=== PATIENT | male | born 1970 | race Caucasian/White ===

== ENCOUNTER 2017-10-21 18:11 | Emergency (ER) | payer OTHER ==
[2017-10-21 18:41] VITALS: BMI 29.0
--- NOTE | 2017-10-21 18:41 | PDOC ---
Rapid Medical Evaluation Time Seen by Provider: 10/21/17 18:37 Medical Evaluation: Allergies Allergy/AdvReac Type Severity Reaction Status Date / Time No Known Allergies Allergy Verified 06/16/15 10:06 10/21/17 18:37 Pt states he has vomiting since yesterday. States he has H. Pylori, currently on medication. States he has a burning feeling in his stomach. Currently taking nexium. Vomited multiple times today Exam: TTP LUQ. Abdomen protuberent. Belching Orders: Labs, urine, iv Pt to proceed to ED for further evaluation Discharge Disposition - Diagnosis Vomiting - Referrals - Patient Instructions - Post Discharge Activity
--- NOTE | 2017-10-21 19:10 | PDOC ---
History of Present Illness - General Chief Complaint: Pain, Acute Stated Complaint: VOMITING/DIARRHEA Time Seen by Provider: 10/21/17 18:37 - History of Present Illness Initial Comments: 10/21/17 20:09 The patient is a 47 year old male with a history of DM, H.Pylori, who presents for evaluation of epigastric abdominal pain. The patient reprots a 1 day history of burning epigastric abdominal pain with radiation into his chest associated with multiple episodes of non-bilious, non-bloody vomiting prompting his presentation to the ED for further evaluation. He notes that he has had similar symptoms in the past due to gastritis. He otherwise denies fevers, chills, SOB, or changes with urination. He does note some intermittent constipation and diarrhea as well. Past History - Past Medical History Allergies/Adverse Reactions: Allergies Allergy/AdvReac Type Severity Reaction Status Date / Time metronidazole Allergy Verified 10/21/17 18:38 Home Medications: Ambulatory Orders metFORMIN HCL [Glucophage -] 1,000 mg PO DAILY 09/19/13 Aspirin [Aspirin EC] 81 mg PO DAILY 12/25/13 Insulin Glargine,Hum.rec.anlog [Lantus (10mL VIAL) -] 15 units SQ DAILY Rosuvastatin Calcium [Crestor] 0 mg PO DAILY 12/25/13 Ondansetron [Zofran Odt -] 4 mg SL TID #21 od.tablet 10/21/17 Pantoprazole Sodium [Protonix -] 40 mg PO DAILY #30 tablet.ec 10/21/17 COPD: No DVT: No Diabetes: Yes - Immunization History Immunization Up to Date: Yes - Suicide/Smoking/Psychosocial Hx Smoking History: Never smoked Have you smoked in the past 12 months: No Number of Cigarettes Smoked Daily: 0 Hx Alcohol Use: No Drug/Substance Use Hx: No Substance Use Type: None Review of Systems - Review of Systems Comments:: 10/21/17 20:11 Constitutional: No fevers, chills, fatigue, malaise HEENT: No Rhinorrhea, nasal congestion, visual changes Cardiovascular: No chest pain, syncope, palpitations, lightheadedness Respiratory: No Cough, SOB, Hemoptysis, Gastrointestinal: Abdominal pain, nausea, vomiting, diarrhea, constipation. No Melena Genitourinary: No Dysuria, Frequency, Urgency, Hesitancy, Hematuria, Flank pain Musculoskeletal: No Myalgia, arthralgia Skin: No rashes, itching, bruising, pallor Neurologic: No Headache, Dizziness, Numbness, Weakness, or Tingling Psychiatric: No Hallucinations. No SI or HI *Physical Exam - Vital Signs Last Vital Signs Temp Pulse Resp BP Pulse Ox 98.8 F 104 H 19 115/78 99 10/21/17 18:38 10/21/17 18:38 10/21/17 18:38 10/21/17 18:38 10/21/17 18:38 - Physical Exam Comments: 10/21/17 20:12 General Appearance: Nourished. In Mild Apparent Distress HEENT: EOMI, SD. No Pharyngeal Erythema, Tonsillar Exudate, Tonsillar Erythema Neck: No Cervical Lymphadenopathy Respiratory/Chest: Lungs Clear, Normal Breath Sounds. No Crackles, Rales, Rhonchi, Wheezing Cardiovascular: Regular Rhythm, Regular Rate. No Murmur, Gallops, Rubs Gastrointestinal/Abdominal: Normal Bowel Sounds, Soft. No Guarding, Rebound, Tenderness Musculoskeletal: No CVA Tenderness Extremity: Normal Capillary Refill Integumentary: Normal Color, Dry, Warm Neurologic: Fully Oriented, Alert, Normal Mood/Affect, Normal Response, M ED Treatment Course - LABORATORY CBC & Chemistry Diagram: 10/21/17 19:25 10/21/17 19:25 Medical Decision Making - Medical Decision Making 10/21/17 20:16 The patient is a 47 year old male with a history of DM, H.Pylori, who presents for evaluation of epigastric abdominal pain. Differential includes but is not limited to: Gastritis, GERD, Cholecystitis, Infectious, Metabolic Derangement. Given the patient's history and physical exam, it is likely the patient's symptoms are due to a gastritis. However, we will obtain a cbc, cmp, troponin, ua, abdominal plain film to evaluate further. We will treat in the meantime with iv fluids, pepcid, zofran, maalox and viscous lidocaine. We will continue to monitor and reassess while here in the ED. 10/21/17 21:36 CBc, cmp, troponin, ua, abdominal plain film are unremarkable. The patient reports some improvement in his symptoms. We are comfortable discharging the patient home with primary care provider follow up on protonix and zofran. We discussed the results, plan, and return precautions with the patient who voiced understanding and is agreeable with the plan. *DC/Admit/Observation/Transfer Diagnosis at time of Disposition: Vomiting Qualifiers: Vomiting type: unspecified Vomiting Intractability: unspecified Nausea presence : with nausea Qualified Code(s): R11.2 - Nausea with vomiting, unspecified - Discharge Dispostion Disposition: HOME Condition at time of disposition: Stable Decision to Admit order: No - Prescriptions Prescriptions: Ondansetron [Zofran Odt -] 4 mg SL TID #21 od.tablet Pantoprazole Sodium [Protonix -] 40 mg PO DAILY #30 tablet.ec - Referrals - Patient Instructions Printed Discharge Instructions: DI for Abdominal Pain-Adult Additional Instructions: Please return to the ER if you experience concerning or worsening symptoms including worsening abdominal pain, fevers, or vomiting. Your lab results and x-rays were normal here in the ED. We have sent a prescription for medications to your pharmacy that you should take as directed. Please call to schedule a follow up appointment with your primary care provider within 2-3 days to discuss your ER visit and further management of your symptoms. - Post Discharge Activity
[2017-10-21] MEDS ORDERED: ONDANSETRON 4 MG/2 ML VIAL IVPUSH ONE ×2 (19:19→22:19)
[2017-10-21] MEDS ORDERED: SODIUM CHLORIDE 1,000 ML IV STA (19:19)
[2017-10-21] MEDS ORDERED: LIDOCAINE VISCOUS 2% ORAL/TOP 20 ML UNIT-DOSE CUP MM ONE (19:20)
[2017-10-21] MEDS ORDERED: MAG HYDROX/AL HYDROX/SIMETH 30 ML UNIT-DOSE CUP PO ONE ×2 (19:20→21:51)
--- NOTE | 2017-10-21 19:27 | PDOC ---
Attending Attestation - [facility] HPI: 10/21/17 19:54 The patient is a 47 year old male, with a significant past medical history of H. pylori (on medication), hypertension, high cholesterol and insulin-dependent diabetes, who presents to the emergency department with, 1 day of diffuse abdominal pain, nausea, vomiting, and diarrhea. He describes his abdominal pain as a burning radiating up to the chest. He denies any recent fevers, chills, headache or dizziness. He denies any recent constipation. He denies any recent shortness of breath. He denies any recent dysuria, frequency, urgency or hematuria. Allergies: Metronidazole. Social History: Nonsmoker. Denies EtOH use and recreational drug use. - Physicial Exam PE: 10/21/17 21:36 GENERAL: Well developed, well nourished. Awake and alert. No acute distress. HEENT: Normocephalic, atraumatic. PERRLA, EOMI. No conjunctival pallor. Sclera are non- icteric. Moist mucous membranes. Oropharynx is clear. NECK: Supple. Full ROM. No JVD. Carotid pulses 2+ and symmetric, without bruits. No thyromegaly. No lymphadenopathy. CARDIOVASCULAR: Regular rate and rhythm. No murmurs, rubs, or gallops. Distal pulses are 2+ and symmetric. PULMONARY: No evidence of respiratory distress. Lungs clear to auscultation bilaterally. No wheezing, rales or rhonchi. ABDOMINAL: Soft. Non-tender. Non-distended. No rebound or guarding. No organomegaly. Normoactive bowel sounds. MUSCULOSKELETAL Normal range of motion at all joints. No bony deformities or tenderness. No CVA tenderness. EXTREMITIES: No cyanosis. No clubbing. No edema. No calf tenderness. SKIN: Warm and dry. Normal capillary refill. No rashes. No jaundice. NEUROLOGICAL: Alert, awake, appropriate. Cranial nerves 2-12 intact. No deficits to light touch and temperature in face, upper extremities and lower extremities. No motor deficits in the in face, upper extremities and lower extremities. Normoreflexic in the upper and lower extremities. Normal speech. Toes are down- going bilaterally. Gait is normal without ataxia. PSYCHIATRIC: Cooperative. Good eye contact. Appropriate mood and affect. <Odell Chatman - Last Filed: 10/21/17 21:36> - Resident Resident Name: GreciaMontrell - ED Attending Attestation I have performed the following: I have examined & evaluated the patient, The case was reviewed & discussed with the resident, I agree w/resident's findings & plan, Exceptions are as noted - Medical Decision Making 10/21/17 21:39 47-year-old male who presented with nausea, vomiting, diarrhea 1 day Past medical history type 2 diabetes he received Zofran, IV fluids, PPI and symptoms improved. Last reviewed - patient is NIDDM and his glucose is about 250, but he is not acidotic and his electrolytes are within normal limits Impression acute gastroenteritis 10/21/17 21:40 <Thais Lundy - Last Filed: 10/21/17 21:42> Attestations - Attestations 10/21/17 19:54 Documentation prepared by Odell Chatman, acting as medical chemist for Thais Lundy MD. <Odell Chatman - Last Filed: 10/21/17 21:36>
[2017-10-21] MEDS ORDERED: FAMOTIDINE 20 MG/50 ML IVPB 20 MG/50 ML MG IVPB ONE ×2 (19:30→19:40)
[2017-10-21] MEDS ORDERED: LIDOCAINE VISCOUS 2% ORAL/TOP 20 ML UNIT-DOSE CUP ONE (19:39)
[2017-10-21] MEDS ORDERED: MAG HYDROX/AL HYDROX/SIMETH 30 ML UNIT-DOSE CUP ONE ×2 (19:40→21:54)
[2017-10-21] MEDS ORDERED: ONDANSETRON 4 MG/2 ML VIAL ONE ×2 (19:40→22:22)
[2017-10-21 19:51] LABS: BASO % 0.3 % (0-2.0); EOS % 0.1 % (0-4.5); HEMATOCRIT 47.2 % (35.4-49); HEMOGLOBIN 16.5 GM/dL (11.7-16.9); LYMPH % 18.3 % (8-40); MCHC 34.8 g/dl (32.0-35.9); MEAN CELL VOLUME 86.2 fl (80-96); MEAN PLT VOLUME 8.6 fl (7.5-11.1); MONO % 4.6 % (3.8-10.2); NEUT % 76.7 % (42.8-82.8); PLATELET COUNT 296 K/MM3 (134-434); RBC 5.48 M/mm3 (4.00-5.60); RDW 13.4 % (11.9-15.9); WHITE BLOOD COUNT 7.3 K/mm3 (4.0-10.0)
[2017-10-21 20:15] LABS: ALBUMIN 4.3 g/dl (3.4-5.0); ANION GAP 12 (8-16); BLOOD UREA NITROGEN 11 mg/dL (7-18); CALCIUM 9.1 mg/dL (8.5-10.1); CHLORIDE 99 mmol/L (98-107); CO2 26 mmol/L (21-32); GLUCOSE,RANDOM 258 mg/dL (74-106); POTASSIUM 3.9 mmol/L (3.5-5.1); SGOT/AST 9 U/L (15-37); SGPT/ALT 23 U/L (12-78); SODIUM 137 mmol/L (136-145)
[2017-10-21 20:17] LABS: ALK PHOS 82 U/L (45-117); BILIRUBIN,TOTAL 0.9 mg/dL (0.2-1.0); TOT PROT 7.6 g/dl (6.4-8.2)
[2017-10-21 20:30] LABS: PROTHROMBIN TIME (PATIENT) 11.3 SEC (9.7-13.0)
[2017-10-21] MEDS ORDERED: PANTOPRAZOLE SODIUM 40 MG VIAL IVPUSH ONE (21:51)
[2017-10-21 21:53] LABS: PLATELET ESTIMATE ADEQUATE
[2017-10-21] MEDS ORDERED: PANTOPRAZOLE SODIUM 40 MG VIAL ONE (21:54)
[2017-10-21 22:43] LABS: URINE APPEARANCE CLEAR; URINE BILIRUBIN NEGATIVE (<2.0 mg/dL); URINE COLOR LTYELLOW; URINE GLUCOSE (UA) 3+ (NEGATIVE); URINE KETONE 2+ (NEGATIVE); URINE LEUK ESTERASE NEGATIVE (NEGATIVE); URINE NITRITE NEGATIVE (NEGATIVE); URINE PROTEIN NEGATIVE (NEGATIVE); URINE UROBILINOGEN NEGATIVE mg/dL (0.2-1.0)
[2017-10-21 22:44] VITALS: BP 155/95; PULSE 99; TEMP 99.8
== END 2017-10-22 00:48 | disposition home or self-care (01) ==
LOC: JER 18:11
PROC: 3E033GC Introduction of Other Therapeutic Substance into Peripheral Vein, Percutaneous Approach (ICD-10-PCS; principal; 2017-10-21)
DX: K52.9 Noninfective gastroenteritis and colitis, unspecified (principal); I10 Essential (primary) hypertension; E78.00 Pure hypercholesterolemia, unspecified; E11.9 Type 2 diabetes mellitus without complications; Z79.4 Long term (current) use of insulin; Z79.84 Long term (current) use of oral hypoglycemic drugs; R11.2 Nausea with vomiting, unspecified; Z86.19 Personal history of other infectious and parasitic diseases
CPT/HCPCS: 36415; 74018-TC-FY; 80053; 81003; 82550; 83690; 84484; 85025; 85610; 87086; 96365; 96375; 99282-25; J7030

== ENCOUNTER 2018-10-17 12:04 | Emergency (ER) | payer OTHER ==
[2018-10-17 12:20] VITALS: TEMP 97.9; BMI 25.4
[2018-10-17] MEDS ORDERED: morphine CARPU-JECT 4 MG/1 ML DISP.SYRIN IVPUSH ONE ×3 (12:47→15:38)
[2018-10-17] MEDS ORDERED: ONDANSETRON 4 MG/2 ML VIAL IVPUSH ONE ×3 (12:47→15:38)
[2018-10-17] MEDS ORDERED: FAMOTIDINE 20 MG/50 ML IVPB 20 MG/50 ML MG IVPB ONE ×2 (12:48→12:54)
[2018-10-17] MEDS ORDERED: SODIUM CHLORIDE 1,000 ML IV STA ×2 (12:50→13:58)
--- NOTE | 2018-10-17 12:54 | PDOC ---
History of Present Illness - General History Source: Patient, Bag Loader Used (Malawian) Exam Limitations: Language Barrier (Malawian) - History of Present Illness Initial Comments: 48 yo M PMH NIDDM, H pylori 1 year ago, p/w diffuse burning abdominal pain for 3 days. Had nausea and vomiting that started at the same time, has had around 8- 10 episodes of vomiting a day. Says it feels similar to his pain from a year ago , when he was diagnosed with H pylori. Has tried Zofran ODT with some temporary relief. Specifically denies CP, wheezing, MARTÍNEZ, dizziness, diarrhea, constipation. Endorses dark stools, abdominal pain with defecation, N/V, abdominal pain. 10/17/18 12:46 <Brandyn Le - Last Filed: 10/17/18 17:49> <Vilma Kumar - Last Filed: 10/17/18 20:17> - General Chief Complaint: Pain, Acute Stated Complaint: ABDOMINAL PAIN Time Seen by Provider: 10/17/18 12:21 Past History - Past Medical History COPD: No DVT: No Diabetes: Yes GI Disorders: Yes (h pylori) - Immunization History Immunization Up to Date: Yes - Suicide/Smoking/Psychosocial Hx Smoking History: Never smoked Have you smoked in the past 12 months: No Number of Cigarettes Smoked Daily: 0 Information on smoking cessation initiated: No Hx Alcohol Use: No Drug/Substance Use Hx: No Substance Use Type: None <Brandyn Le - Last Filed: 10/17/18 17:49> <Vilma Kumar - Last Filed: 10/17/18 20:17> - Past Medical History Allergies/Adverse Reactions: Allergies Allergy/AdvReac Type Severity Reaction Status Date / Time metronidazole Allergy Verified 10/17/18 12:12 Home Medications: Ambulatory Orders metFORMIN HCL [Glucophage -] 1,000 mg PO DAILY 09/19/13 Aspirin [Aspirin EC] 81 mg PO DAILY 12/25/13 Insulin Glargine,Hum.rec.anlog [Lantus (10mL VIAL) -] 15 units SQ DAILY Rosuvastatin Calcium [Crestor] 0 mg PO DAILY 12/25/13 Ondansetron [Zofran Odt -] 4 mg SL TID #21 od.tablet 10/21/17 Pantoprazole Sodium [Protonix -] 40 mg PO DAILY #30 tablet.ec 10/21/17 Metoclopramide HCl [Reglan] 10 mg PO DAILY PRN #14 tablet 10/17/18 Ranitidine [Zantac -] 150 mg PO DAILY PRN #30 tablet 10/17/18 Review of Systems - Review of Systems Able to Perform ROS?: Yes Constitutional: No: Chills, Fever, Weakness HEENTM: No: Blurred Vision, Double Vision, Throat Pain, Throat Swelling, Difficulty Swallowing Respiratory: No: Cough, Orthopnea, Shortness of Breath Cardiac (ROS): No: Chest Pain, Edema, Irregular Heart Rate, Lightheadedness ABD/GI: Yes: Abd. Pain w/ defecation, Nausea, Vomiting, Tarry Stools. No: Abdominal Distended, Constipated, Diarrhea : No: Burning, Dysuria, Discharge, Frequency, Flank Pain Musculoskeletal: No: Back Pain, Muscle Pain, Muscle Weakness Neurological: No: Headache, Numbness, Tingling <Brandyn Le - Last Filed: 10/17/18 17:49> *Physical Exam - Vital Signs Last Vital Signs Temp Pulse Resp BP Pulse Ox 97.9 F 94 H 20 136/85 99 10/17/18 12:12 10/17/18 12:12 10/17/18 12:12 10/17/18 12:12 10/17/18 12:12 - Physical Exam General Appearance: Yes: Appropriately Dressed, Moderate Distress HEENT: positive: EOMI, SD, Normal ENT Inspection, Normal Voice, Pharynx Normal , Hearing Grossly Normal Neck: positive: Trachea midline, Normal Thyroid, Supple Respiratory/Chest: positive: Lungs Clear, Normal Breath Sounds. negative: Chest Tender, Respiratory Distress, Accessory Muscle Use Cardiovascular: positive: Regular Rhythm, Regular Rate Gastrointestinal/Abdominal: positive: Normal Bowel Sounds, Tender (LLQ), Soft Musculoskeletal: positive: Normal Inspection. negative: CVA Tenderness Extremity: positive: Normal Capillary Refill, Normal Inspection, Normal Range of Motion Integumentary: positive: Normal Color, Dry, Warm Neurologic: positive: child care cook II-XII NML intact, Fully Oriented, Alert, Normal Mood/ Affect, Normal Response, Motor Strength 5/5 <Brandyn Le - Last Filed: 10/17/18 17:49> - Vital Signs Last Vital Signs Temp Pulse Resp BP Pulse Ox 97.9 F 88 18 146/86 98 10/17/18 12:12 10/17/18 17:32 10/17/18 17:32 10/17/18 17:32 10/17/18 17:32 <Sabi Kumarreen - Last Filed: 10/17/18 20:17> ED Treatment Course - LABORATORY CBC & Chemistry Diagram: 10/17/18 13:00 10/17/18 13:00 <Brandyn Le - Last Filed: 10/17/18 17:49> - LABORATORY CBC & Chemistry Diagram: 10/17/18 13:00 10/17/18 13:00 - ADDITIONAL ORDERS Additional order review: Laboratory Results 10/17/18 10/17/18 10/17/18 13:11 13:11 13:00 Sodium Potassium Chloride Carbon Dioxide Anion Gap BUN Creatinine Est GFR (CKD-EPI)AfAm Est GFR (CKD-EPI)NonAf Random Glucose Calcium Total Bilirubin AST ALT Alkaline Phosphatase Total Protein Albumin Lipase Urine Color Yellow Urine Appearance Clear Urine pH >= 9.0 H D Ur Specific [place] 1.036 H Urine Protein Negative Urine Glucose (UA) 2+ H Urine Ketones 3+ H Urine Blood Negative Urine Nitrite Negative Urine Bilirubin Negative Urine Urobilinogen 1.0 Ur Leukocyte Esterase Negative Stool Occult Blood Negative Acetone, Qual Positive small 1+ 10/17/18 13:00 Sodium 137 Potassium 4.3 Chloride 100 Carbon Dioxide 27 Anion Gap 11 BUN 12.8 Creatinine 0.9 Est GFR (CKD-EPI)AfAm 115.02 Est GFR (CKD-EPI)NonAf 99.24 Random Glucose 290 H Calcium 9.2 Total Bilirubin 0.7 AST 10 L ALT 25 Alkaline Phosphatase 74 Total Protein 7.3 Albumin 4.1 Lipase 165 Urine Color Urine Appearance Urine pH Ur Specific [place] Urine Protein Urine Glucose (UA) Urine Ketones Urine Blood Urine Nitrite Urine Bilirubin Urine Urobilinogen Ur Leukocyte Esterase Stool Occult Blood Acetone, Qual 10/17/18 13:00 RBC 5.10 MCV 86.8 MCHC 35.3 RDW 13.2 MPV 8.9 Neutrophils % 78.0 Lymphocytes % 18.0 Monocytes % 3.1 L Eosinophils % 0.3 D Basophils % 0.6 - Medications Given in the ED: ED Medications Discontinued Medications Generic Name Dose Route Start Last Admin Trade Name Freq PRN Reason Stop Dose Admin Al Hydroxide/Mg Hydroxide 30 ml 10/17/18 15:38 10/17/18 16:30 Mylanta Oral Suspension - PO 10/17/18 15:39 30 ml ONCE ONE Administration Famotidine/Sodium Chloride 20 mg in 50 mls @ 100 mls/hr 10/17/18 12:48 13:03 Pepcid 20 Mg Premixed Ivpb - IVPB 10/17/18 13:17 100 mls/hr ONCE ONE Administration Sodium Chloride 1,000 mls @ 1,000 mls/hr 10/17/18 12:50 10/17/18 12:51 Normal Saline - IV 10/17/18 13:49 1,000 mls/hr ASDIR STA Administration Sodium Chloride 1,000 mls @ 1,000 mls/hr 10/17/18 13:58 10/17/18 14:05 Normal Saline - IV 10/17/18 14:57 1,000 mls/hr ASDIR STA Administration Metoclopramide HCl 10 mg 10/17/18 16:03 10/17/18 16:40 Reglan Injection - IVPB 10/17/18 16:04 Not Given ONCE ONE Morphine Sulfate 4 mg 10/17/18 12:47 10/17/18 13:02 Morphine Injection - IVPUSH 10/17/18 12:48 4 mg ONCE ONE Administration Morphine Sulfate 4 mg 10/17/18 13:21 10/17/18 13:31 Morphine Injection - IVPUSH 10/17/18 13:22 4 mg ONCE ONE Administration Morphine Sulfate 4 mg 10/17/18 15:38 10/17/18 16:25 Morphine Injection - IVPUSH 10/17/18 15:39 4 mg ONCE ONE Administration Ondansetron HCl 4 mg 10/17/18 12:47 10/17/18 13:07 Zofran Injection IVPUSH 10/17/18 12:48 4 mg NOW ONE Administration Ondansetron HCl 4 mg 10/17/18 13:21 10/17/18 13:31 Zofran Injection IVPUSH 10/17/18 13:22 4 mg NOW ONE Administration Ondansetron HCl 4 mg 10/17/18 15:38 10/17/18 16:15 Zofran Injection IVPUSH 10/17/18 15:39 4 mg ONCE ONE Administration <Kumar,Vilma - Last Filed: 10/17/18 20:17> Medical Decision Making - Medical Decision Making Concern for PUD vs diverticulitis vs pancreatitis. CBC CMP lipase stool occult IV fluids morphine 4mg Zofran UA. Plan for CT w/ IV contrast after confirming Cr. 10/17/18 12:51 Nausea and abd pain only slightly improved. Another 4 of morphine, 4 of Zofran 10/17/18 13:22 WBC 7. UA ketones 3+ glucose 2+ 10/17/18 13:30 Abd pain and nausea better. 10/17/18 13:47 Electrolytes wnl, Cr 0.9, Glu 290 10/17/18 13:55 Lipase wnl, heme occult negative. 10/17/18 14:12 CT reviewed. No acute pathology noted. Nonspecific 1.4 cm hypodense L hepatic lobe lesion. Probable diffuse hepatic steatosis. Pleural ossification in R lower chest posteriorly. 10/17/18 15:30 Giving another 4 of morphine and 4 of Zofran, also Maalox. Getting RUQ US for possible biliary colic. 10/17/18 15:39 <Brandyn Le - Last Filed: 10/17/18 17:49> *DC/Admit/Observation/Transfer - Discharge Dispostion Decision to Admit order: No <Brandyn Le - Last Filed: 10/17/18 17:49> <Vilma Kumar - Last Filed: 10/17/18 20:17> Diagnosis at time of Disposition: Epigastric pain, Gastroparesis diabeticorum - Discharge Dispostion Disposition: HOME Condition at time of disposition: Improved - Prescriptions Prescriptions: Metoclopramide HCl [Reglan] 10 mg PO DAILY PRN #14 tablet PRN Reason: Pain Ranitidine [Zantac -] 150 mg PO DAILY PRN #30 tablet PRN Reason: Nausea - Referrals Referrals: Heber Sharma MD [Primary Care Provider] - Napoleon Che MD [Staff Physician] - - Patient Instructions Printed Discharge Instructions: DI for Gastroesophageal Reflux Disease (GERD), DI for Gastroparesis Additional Instructions: You were seen for diffuse abdominal pain. You had a CT scan of your abdomen and pelvis, which did not show any acute issues. However, it did show a 1.4 cm lesion in your liver, which should be followed up by your primary care doctor. It also showed a lung calcification, which should also be followed. Please take your Reglan and ranitidine as needed for pain and nausea. Return to the ED for worsening abdominal pain and vomiting that does not respond to your medications. Print Language: GE[place]GI[place] - Post Discharge Activity
[2018-10-17] MEDS ORDERED: morphine SULFATE 4 MG/ML VIAL ONE ×3 (12:56→16:08)
[2018-10-17] MEDS ORDERED: ONDANSETRON 4 MG/2 ML VIAL ONE ×3 (13:04→16:08)
--- NOTE | 2018-10-17 13:17 | PDOC ---
Documentation entered by Nancy Torres SCRIBE, acting as scribe for Rubio Rocha MD. Rubio Rocha MD: This documentation has been prepared by the Melissa ramirez Xhesika, SCRIBE, under my direction and personally reviewed by me in its entirety. I confirm that the documentation accurately reflects all work, treatment, procedures, and medical decision making performed by me. Attending Attestation - Resident Resident Name: LeSangmel - ED Attending Attestation I have performed the following: I have examined & evaluated the patient, The case was reviewed & discussed with the resident, I agree w/resident's findings & plan, Exceptions are as noted - HPI HPI: 10/17/18 12:50 The patient is a 48 year old male, with a significant past medical history of H. pylori (1 year ago), hypertension, high cholesterol and uncontrolled DM, who presents to the emergency department with 3 days of abdominal pain, nausea, 8- 10 episodes of nbnb vomiting, and diarrhea. He describes his abdominal pain as a diffuse burning pain associated with SOB. Patient notes his last normal BM was 2 days ago. Patient notes he saw GI last year for H.pylori but does not remember the name. He denies any recent fevers, chills, headache or dizziness. He denies any recent constipation. He denies any recent chest pain or palpitations. He denies any recent dysuria, frequency, urgency or hematuria. Allergies: Metronidazole Social history: Denies alcohol or tobacco use. PCP: Heber Mitchell - Physicial Exam PE: 10/17/18 13:25 GENERAL: Awake, alert, and fully oriented, in no acute distress HEAD: No signs of trauma EYES: PERRLA, EOMI, sclera anicteric, conjunctiva clear ENT: Auricles normal inspection, hearing grossly normal, nares patent. (+) Dry mucosa NECK: Normal ROM, supple, no lymphadenopathy, JVD, or masses LUNGS: Breath sounds equal, clear to auscultation bilaterally. No wheezes, and no crackles HEART: Regular rate and rhythm, normal S1 and S2, no murmurs, rubs or gallops ABDOMEN:(+) LLQ tenderness to palpation. Soft, nontender. EXTREMITIES: Normal range of motion, no edema. No clubbing or cyanosis. No cords, erythema, or tenderness NEUROLOGICAL: Cranial nerves II through XII grossly intact. Normal speech, normal gait SKIN: Warm, Dry, normal turgor, no rashes or lesions noted. - Medical Decision Making 10/17/18 13:20 A portion of this note was written by my scribe, under my supervision. Vital Signs Temp Pulse Resp BP Pulse Ox 97.9 F 94 H 20 136/85 99 10/17/18 12:12 10/17/18 12:12 10/17/18 12:12 10/17/18 12:12 10/17/18 12:12 48 year old male c/ hx of H.pylori, DM presents with nausea and vomiting and abdominal pain. The patient reported in the last 3 days, he was having increasing left upper and left lower abdominal discomfort. Was initially intermittent but became increasingly persistent with worsening intensity. Pt has associated nausea and multiple vomiting. Denies testicular pain, dysuria. Denies diarrhea. Pt states that this feels like his H.Pylori attacks before. No fevers, but thinks may have had chills. Denies blood in stools. The patient has LUQ and LLQ pain. Differential includes diverticulitis, gastritis, pancreatitis, gastroparesis. I agree with the plan to obtain labs, UA/UC and CT abdomen and pelvis. Pt does report having a distant history where he had right sided pneumonia where he ended up received a "procedure" to repair it. The patient denies chest pain or SOB or cough. Denies midsternal chest pain. Will trial pain medications, IVF, and anti-emetics and reassess. 10/17/18 13:58 CBC, BMP 10/17/18 13:00 10/17/18 13:00 CMP Sodium 137 mmol/L (136-145) 10/17/18 13:00 Potassium 4.3 mmol/L (3.5-5.1) 10/17/18 13:00 Chloride 100 mmol/L (98-107) 10/17/18 13:00 Carbon Dioxide 27 mmol/L (21-32) 10/17/18 13:00 Anion Gap 11 MMOL/L (8-16) 10/17/18 13:00 BUN 12.8 mg/dL (7-18) 10/17/18 13:00 Creatinine 0.9 mg/dL (0.55-1.3) 10/17/18 13:00 Est GFR (CKD-EPI)AfAm 115.02 10/17/18 13:00 Est GFR (CKD-EPI)NonAf 99.24 10/17/18 13:00 Random Glucose 290 mg/dL (74-106) H 10/17/18 13:00 Calcium 9.2 mg/dL (8.5-10.1) 10/17/18 13:00 Total Bilirubin 0.7 mg/dL (0.2-1) 10/17/18 13:00 AST 10 U/L (15-37) L 10/17/18 13:00 ALT 25 U/L (13-61) 10/17/18 13:00 Alkaline Phosphatase 74 U/L (45-117) 10/17/18 13:00 Total Protein 7.3 g/dl (6.4-8.2) 10/17/18 13:00 Albumin 4.1 g/dl (3.4-5.0) 10/17/18 13:00 Lipase 165 U/L (73-393) 10/17/18 13:00 Urine Test Results Urine Color Yellow 10/17/18 13:11 Urine Appearance Clear 10/17/18 13:11 Urine pH >= 9.0 (5.0-8.0) H D 10/17/18 13:11 Ur Specific [place] 1.036 (1.010-1.035) H 10/17/18 13:11 Urine Protein Negative (NEGATIVE) 10/17/18 13:11 Urine Glucose (UA) 2+ (NEGATIVE) H 10/17/18 13:11 Urine Ketones 3+ (NEGATIVE) H 10/17/18 13:11 Urine Blood Negative (NEGATIVE) 10/17/18 13:11 Urine Nitrite Negative (NEGATIVE) 10/17/18 13:11 Urine Bilirubin Negative (NEGATIVE) 10/17/18 13:11 Ur Leukocyte Esterase Negative (NEGATIVE) 10/17/18 13:11 CT is pending at this time. Acetone is 1+ positive but no elevated anion gap. Unlikely to be diabetic ketoacidosis. However, pt will need NS IVF and D5NS maintenance. 10/17/18 15:38 CT scan shows hypodense lesion in RUQ but no other acute findings. Pt continues to have persistent abdominal pain. Will give more pain medications and pursue with RUQ ultrasound. 10/17/18 18:45 RUQ read pending. Pt reassessed and feels significantly better. This may be gastritis vs. gastroenteritis. If U/s is negative and pt is tolerating PO, he can be discharged home with supportive care. Heart Score/ECG Review #1 ECG reviewed & interpreted by me at: 13:15 10/17/18 13:37 NSR 93, no std/mary, normal axis, normal intervals, QTC 465 msec
[2018-10-17 13:18] LABS: BASO % 0.6 % (0-2.0); EOS % 0.3 % (0-4.5); HEMATOCRIT 44.3 % (35.4-49); HEMOGLOBIN 15.6 GM/dL (11.7-16.9); MCH 30.7 pg (25.7-33.7); MCHC 35.3 g/dl (32.0-35.9); MEAN CELL VOLUME 86.8 fl (80-96); MEAN PLT VOLUME 8.9 fl (7.5-11.1); MONO % 3.1 % (3.8-10.2); PLATELET COUNT 244 K/MM3 (134-434); RDW 13.2 % (11.9-15.9)
[2018-10-17 13:23] LABS: PH,URINE >= 9.0 (5.0-8.0); URINE APPEARANCE CLEAR; URINE BILIRUBIN NEGATIVE (NEGATIVE); URINE COLOR YELLOW; URINE GLUCOSE (UA) 2+ (NEGATIVE); URINE KETONE 3+ (NEGATIVE); URINE LEUK ESTERASE NEGATIVE (NEGATIVE); URINE NITRITE NEGATIVE (NEGATIVE); URINE PROTEIN NEGATIVE (NEGATIVE)
[2018-10-17 13:49] LABS: ALBUMIN 4.1 g/dl (3.4-5.0); BILIRUBIN,TOTAL 0.7 mg/dL (0.2-1); BLOOD UREA NITROGEN 12.8 mg/dL (7-18); CALCIUM 9.2 mg/dL (8.5-10.1); CREATININE 0.9 mg/dL (0.55-1.3); POTASSIUM 4.3 mmol/L (3.5-5.1); TOT PROT 7.3 g/dl (6.4-8.2)
[2018-10-17] MEDS ORDERED: DEXTROSE 5%-NORMAL SALINE 1,000 ML IV SCH (14:00)
[2018-10-17] MEDS ORDERED: MAG HYDROX/AL HYDROX/SIMETH 30 ML UNIT-DOSE CUP PO ONE (15:38)
[2018-10-17] MEDS ORDERED: METOCLOPRAMIDE HCL INJECTION 10 MG/2 ML VIAL IVPB ONE (16:03)
[2018-10-17] MEDS ORDERED: MAG HYDROX/AL HYDROX/SIMETH 30 ML UNIT-DOSE CUP ONE (16:08)
[2018-10-17 20:28] VITALS: BP 120/78; PULSE 100
--- NOTE | 2018-10-18 10:35 | EKG ---
Test Reason : Blood Pressure : / mmHG Vent. Rate : 093 BPM Atrial Rate : 093 BPM P-R Int : 148 ms QRS Dur : 094 ms QT Int : 374 ms P-R-T Axes : 054 019 024 degrees QTc Int : 465 ms NORMAL SINUS RHYTHM NORMAL ECG WHEN COMPARED WITH ECG OF 16-JUN-2015 10:33, NO SIGNIFICANT CHANGE WAS FOUND Confirmed by ABDI ACEVEDO MD ([id number]) on 10/18/2018 10:34:49 AM Referred By: Confirmed By:ABDI ACEVEDO MD
== END 2018-10-17 20:28 | disposition home or self-care (01) ==
LOC: JER 12:04
PROC: 3E0337Z Introduction of Electrolytic and Water Balance Substance into Peripheral Vein, Percutaneous Approach (ICD-10-PCS; principal; 2018-10-17)
PROC: 3E033GC Introduction of Other Therapeutic Substance into Peripheral Vein, Percutaneous Approach (ICD-10-PCS; 2018-10-17)
PROC: 3E033NZ Introduction of Analgesics, Hypnotics, Sedatives into Peripheral Vein, Percutaneous Approach (ICD-10-PCS; 2018-10-17)
PROC: 3E033GC Introduction of Other Therapeutic Substance into Peripheral Vein, Percutaneous Approach (ICD-10-PCS; 2018-10-17)
PROC: 3E033GC Introduction of Other Therapeutic Substance into Peripheral Vein, Percutaneous Approach (ICD-10-PCS; 2018-10-17)
DX: R10.13 Epigastric pain (principal); E11.43 Type 2 diabetes mellitus with diabetic autonomic (poly)neuropathy; E11.65 Type 2 diabetes mellitus with hyperglycemia; K31.84 Gastroparesis; Z79.4 Long term (current) use of insulin; Z79.84 Long term (current) use of oral hypoglycemic drugs; Z87.19 Personal history of other diseases of the digestive system
CPT/HCPCS: 36415; 71046-TC-FY; 74177-TC; 76705-TC; 80053; 81003; 82009; 82272; 83690; 85025; 93005; 93010; 96361; 96365; 96375; 96376; 99284-25; J7030

== ENCOUNTER 2018-10-19 05:15 | Emergency (ER) | payer OTHER ==
--- NOTE | 2018-10-19 05:28 | PDOC ---
Attending Attestation - Resident Resident Name: Brandyn Le - ED Attending Attestation I have performed the following: I have examined & evaluated the patient, The case was reviewed & discussed with the resident, I agree w/resident's findings & plan - HPI HPI: 10/19/18 06:02 Pt returns with intractable vomiting and coffee ground emesis. He was here yesterday and diagnosed with a thickened GB wall. He is diabetic and had large ketones in his urine. He had controlled blood sugar however. Pt has RUQ pain and he has been unable to keep his food down today. He wants his GB taken out. - Physicial Exam PE: 10/19/18 06:04 Agree with resident exam - Medical Decision Making 10/19/18 06:04 Labs sent 10/19/18 06:04 Pt will be signed out to the day team 10/19/18 06:06 He will be admitted for intractable vomtiing
[2018-10-19 05:31] VITALS: BMI 27.7
[2018-10-19] MEDS ORDERED: FAMOTIDINE 20 MG/50 ML IVPB 20 MG/50 ML MG IVPB ONE ×2 (05:43→06:10)
[2018-10-19] MEDS ORDERED: SODIUM CHLORIDE 1,000 ML IV STA (05:43)
[2018-10-19] MEDS ORDERED: MAG HYDROX/AL HYDROX/SIMETH 30 ML UNIT-DOSE CUP PO PRN (05:43)
[2018-10-19] MEDS ORDERED: morphine CARPU-JECT 4 MG/1 ML DISP.SYRIN IVPUSH ONE (05:44)
[2018-10-19] MEDS ORDERED: DEXTROSE 5%-NORMAL SALINE 1,000 ML IV ONE ×3 (05:52→05:56)
--- NOTE | 2018-10-19 05:58 | PDOC ---
History of Present Illness - General Chief Complaint: Pain, Acute Stated Complaint: ABDOMINAL PAIN Time Seen by Provider: 10/19/18 05:28 History Source: Patient Exam Limitations: Language Barrier (Vietnamese, some Yoruba) - History of Present Illness Initial Comments: 48 yo M NIDDM, H pylori 1 year ago, presenting with nausea, vomiting, and abdominal pain. Notably, patient seen here on the for same. States that he was able to keep some rice down, but had ten episodes of vomiting again. Was not able to get Reglan or ranitidine outpatient, and has not tried anything at home. Denies CP, SOB, wheezing, constipation/diarrhea, fevers/chills, change in stools. 10/19/18 05:54 Past History - Past Medical History Allergies/Adverse Reactions: Allergies Allergy/AdvReac Type Severity Reaction Status Date / Time metronidazole Allergy Verified 10/19/18 06:58 Home Medications: Ambulatory Orders metFORMIN HCL [Glucophage -] 1,000 mg PO DAILY 09/19/13 Aspirin [Aspirin EC] 81 mg PO DAILY 12/25/13 Insulin Glargine,Hum.rec.anlog [Lantus (10mL VIAL) -] 15 units SQ DAILY Rosuvastatin Calcium [Crestor] 0 mg PO DAILY 12/25/13 Ondansetron [Zofran Odt -] 4 mg SL TID #21 od.tablet 10/21/17 Pantoprazole Sodium [Protonix -] 40 mg PO DAILY #30 tablet.ec 10/21/17 Metoclopramide HCl [Reglan] 10 mg PO DAILY PRN #14 tablet 10/17/18 Ranitidine [Zantac -] 150 mg PO DAILY PRN #30 tablet 10/17/18 COPD: No DVT: No Diabetes: Yes GI Disorders: Yes (h pylori) - Immunization History Immunization Up to Date: Yes - Suicide/Smoking/Psychosocial Hx Smoking History: Unknown if ever smoked Have you smoked in the past 12 months: No Number of Cigarettes Smoked Daily: 0 Information on smoking cessation initiated: No Hx Alcohol Use: No Drug/Substance Use Hx: No Substance Use Type: None Review of Systems - Review of Systems Able to Perform ROS?: Yes Constitutional: No: Fever, Weakness HEENTM: No: Eye Pain, Blurred Vision, Double Vision, Throat Pain, Throat Swelling, Difficulty Swallowing, Mouth Swelling Respiratory: No: Cough, Orthopnea, Shortness of Breath ABD/GI: Yes: Nausea, Vomiting. No: Abdominal Distended, Constipated, Diarrhea : No: Burning, Dysuria, Discharge, Frequency, Flank Pain Musculoskeletal: No: Back Pain Neurological: No: Headache, Numbness, Tingling *Physical Exam - Vital Signs Last Vital Signs Temp Pulse Resp BP Pulse Ox 98.5 F 91 H 20 169/87 100 10/19/18 05:22 10/19/18 05:22 10/19/18 05:22 10/19/18 05:22 10/19/18 05:22 - Physical Exam General Appearance: Yes: Apparent Distress, Other (patient sitting with vomitus on shirt, one episode of vomiting during exam) HEENT: positive: EOMI, SD, Normal ENT Inspection, Normal Voice, Symmetrical, Pharynx Normal, Hearing Grossly Normal Neck: positive: Trachea midline, Normal Thyroid, Supple. negative: Tender Respiratory/Chest: positive: Lungs Clear, Normal Breath Sounds. negative: Chest Tender, Respiratory Distress, Accessory Muscle Use Cardiovascular: positive: Regular Rhythm, Regular Rate Gastrointestinal/Abdominal: positive: Normal Bowel Sounds, Soft. negative: Tender Musculoskeletal: positive: Normal Inspection, CVA Tenderness Extremity: positive: Normal Capillary Refill, Normal Inspection, Normal Range of Motion Integumentary: positive: Normal Color, Warm, Other (sweaty) Neurologic: positive: office support associate II-XII NML intact, Fully Oriented, Alert, Normal Mood/ Affect, Normal Response, Motor Strength 5/5 ED Treatment Course - LABORATORY CBC & Chemistry Diagram: 10/19/18 05:55 10/19/18 05:55 Medical Decision Making - Medical Decision Making Concern for acute cholecystitis considering earlier RUQ US with wall thickening and vomiting. CBC CMP lactic acid lipase famotidine Zofran fluids PT/INR PTT T+S 10/19/18 05:[address] Nazario. 10/19/18 07:07 *DC/Admit/Observation/Transfer - Referrals Referrals: Heber Sharma MD [Primary Care Provider] - - Patient Instructions - Post Discharge Activity
[2018-10-19] MEDS ORDERED: MAG HYDROX/AL HYDROX/SIMETH 30 ML UNIT-DOSE CUP ONE (06:10)
[2018-10-19] MEDS ORDERED: ACETAMINOPHEN 1000 MG/100 ML VIAL (NON FORMULARY) IVPB ONE (06:30)
[2018-10-19 06:31] LABS: BASO % 0.5 % (0-2.0); HEMATOCRIT 44.1 % (35.4-49); HEMOGLOBIN 15.8 GM/dL (11.7-16.9); LYMPH % 20.9 % (8-40); MCH 31.1 pg (25.7-33.7); MCHC 35.8 g/dl (32.0-35.9); MEAN CELL VOLUME 86.7 fl (80-96); MEAN PLT VOLUME 8.8 fl (7.5-11.1); MONO % 5.6 % (3.8-10.2); PLATELET COUNT 248 K/MM3 (134-434); RBC 5.08 M/mm3 (4.00-5.60); RDW 13.3 % (11.9-15.9); WHITE BLOOD COUNT 8.2 K/mm3 (4.0-10.0)
[2018-10-19] MEDS ORDERED: ONDANSETRON 4 MG/2 ML VIAL IVPUSH ONE ×2 (06:32→07:08)
[2018-10-19] MEDS ORDERED: ONDANSETRON 4 MG/2 ML VIAL ONE (06:35)
[2018-10-19] MEDS ORDERED: METOCLOPRAMIDE HCL INJECTION 10 MG/2 ML VIAL IVPUSH ONE (07:10)
[2018-10-19] MEDS ORDERED: METOCLOPRAMIDE HCL INJECTION 10 MG/2 ML VIAL ONE (07:14)
[2018-10-19 07:39] LABS: BILIRUBIN,TOTAL 0.4 mg/dL (0.2-1); BLOOD UREA NITROGEN 9.5 mg/dL (7-18); CALCIUM 9.1 mg/dL (8.5-10.1); CREATININE 0.8 mg/dL (0.55-1.3); LDH 214 U/L (87-246); TOT PROT 7.2 g/dl (6.4-8.2)
[2018-10-19 07:44] LABS: INR 0.92 (0.83-1.09); PROTHROMBIN TIME (PATIENT) 10.8 SEC (9.7-13.0)
[2018-10-19 07:46] LABS: ACTIVATED PTT 31.1 SECONDS (25.2-36.5)
--- NOTE | 2018-10-19 08:34 | PDOC ---
*Physical Exam - Vital Signs Last Vital Signs Temp Pulse Resp BP Pulse Ox 99.1 F 96 H 18 161/101 H 100 10/19/18 09:21 10/19/18 09:21 10/19/18 09:21 10/19/18 09:21 10/19/18 09:21 <Valdemar Galeas - Last Filed: 10/19/18 13:53> - Vital Signs Last Vital Signs Temp Pulse Resp BP Pulse Ox 98.5 F 91 H 20 169/87 100 10/19/18 05:22 10/19/18 05:22 10/19/18 05:22 10/19/18 05:22 10/19/18 05:22 <Farideh Nazario - Last Filed: 10/19/18 14:17> ED Treatment Course - LABORATORY CBC & Chemistry Diagram: 10/19/18 05:55 10/19/18 05:55 - ADDITIONAL ORDERS Additional order review: Laboratory Results 10/19/18 10/19/18 10/19/18 06:16 05:55 05:55 PT with INR INR PTT (Actin FS) Sodium Potassium Chloride Carbon Dioxide Anion Gap BUN Creatinine Est GFR (CKD-EPI)AfAm Est GFR (CKD-EPI)NonAf Random Glucose Lactic Acid 2.1 H Calcium Total Bilirubin AST ALT Alkaline Phosphatase LD Total Total Protein Albumin Total Amylase Lipase Acetone, Qual Blood Type A POSITIVE A POSITIVE Antibody Screen Negative 10/19/18 10/19/18 10/19/18 05:55 05:55 05:55 PT with INR 10.80 INR 0.92 PTT (Actin FS) 31.1 Sodium Potassium Chloride Carbon Dioxide Anion Gap BUN Creatinine Est GFR (CKD-EPI)AfAm Est GFR (CKD-EPI)NonAf Random Glucose Lactic Acid Calcium Total Bilirubin AST ALT Alkaline Phosphatase LD Total 214 Total Protein Albumin Total Amylase Lipase Acetone, Qual Negative Blood Type Cancelled Antibody Screen Cancelled 10/19/18 05:55 PT with INR INR PTT (Actin FS) Sodium 135 L Potassium 4.0 Chloride 100 Carbon Dioxide 28 Anion Gap 7 L BUN 9.5 Creatinine 0.8 Est GFR (CKD-EPI)AfAm 120.72 Est GFR (CKD-EPI)NonAf 104.16 Random Glucose 297 H Lactic Acid Calcium 9.1 Total Bilirubin 0.4 AST 13 L ALT 25 Alkaline Phosphatase 66 LD Total Total Protein 7.2 Albumin 4.0 Total Amylase 107 Lipase 216 Acetone, Qual Blood Type Antibody Screen 10/19/18 05:55 RBC 5.08 MCV 86.7 MCHC 35.8 RDW 13.3 MPV 8.8 Neutrophils % 72.0 Lymphocytes % 20.9 Monocytes % 5.6 D Eosinophils % 1.0 D Basophils % 0.5 - Medications Given in the ED: ED Medications Discontinued Medications Generic Name Dose Route Start Last Admin Trade Name Drake PRN Reason Stop Dose Admin Acetaminophen 1,000 mg 10/19/18 06:30 10/19/18 06:40 Ofirmev Injection - IVPB 10/19/18 06:31 1,000 mg ONCE ONE Administration Famotidine/Sodium Chloride 20 mg in 50 mls @ 100 mls/hr 10/19/18 05:43 06:15 Pepcid 20 Mg Premixed Ivpb - IVPB 10/19/18 06:12 100 mls/hr ONCE ONE Administration Sodium Chloride 1,000 mls @ 1,000 mls/hr 10/19/18 05:43 10/19/18 06:24 Normal Saline - IV 10/19/18 06:42 Not Given ASDIR STA Dextrose/Sodium Chloride 1,000 mls @ 1,000 mls/hr 10/19/18 05:52 10/19/18 06: 00 D5-Ns - IV 10/19/18 06:51 1,000 mls/hr ONCE ONE Administration Dextrose/Sodium Chloride 1,000 mls @ 1,000 mls/hr 10/19/18 05:52 10/19/18 06: 00 D5-Ns - IV 10/19/18 06:51 1,000 mls/hr ONCE ONE Administration Dextrose/Sodium Chloride 1,000 mls @ 1,000 mls/hr 10/19/18 05:56 10/19/18 06: 24 D5-Ns - IV 10/19/18 06:55 Not Given ONCE ONE Metoclopramide HCl 10 mg 10/19/18 07:10 10/19/18 07:27 Reglan Injection - IVPUSH 10/19/18 07:11 10 mg ONCE ONE Administration Morphine Sulfate 4 mg 10/19/18 05:44 10/19/18 06:24 Morphine Injection - IVPUSH 10/19/18 05:45 Not Given ONCE ONE Ondansetron HCl 4 mg 10/19/18 06:32 10/19/18 06:40 Zofran Injection IVPUSH 10/19/18 06:33 4 mg ONCE ONE Administration Ondansetron HCl 4 mg 10/19/18 07:08 10/19/18 07:27 Zofran Injection IVPUSH 10/19/18 07:09 Not Given NOW ONE <Valdemar Galeas - Last Filed: 10/19/18 13:53> - LABORATORY CBC & Chemistry Diagram: 10/19/18 05:55 10/19/18 05:55 - ADDITIONAL ORDERS Additional order review: Laboratory Results 10/19/18 10/19/18 10/19/18 05:55 05:55 05:55 WBC RBC Hgb Hct MCV MCH MCHC RDW Plt Count MPV Absolute Neuts (auto) Neutrophils % Lymphocytes % Monocytes % Eosinophils % Basophils % Nucleated RBC % PT with INR INR PTT (Actin FS) Sodium Potassium Chloride Carbon Dioxide Anion Gap BUN Creatinine Est GFR (CKD-EPI)AfAm Est GFR (CKD-EPI)NonAf Random Glucose Lactic Acid 2.1 H Calcium Total Bilirubin AST ALT Alkaline Phosphatase LD Total 214 Total Protein Albumin Total Amylase Lipase Blood Type Cancelled Antibody Screen Cancelled 10/19/18 10/19/18 10/19/18 05:55 05:55 05:55 WBC 8.2 RBC 5.08 Hgb 15.8 Hct 44.1 MCV 86.7 MCH 31.1 MCHC 35.8 RDW 13.3 Plt Count 248 MPV 8.8 Absolute Neuts (auto) 5.9 Neutrophils % 72.0 Lymphocytes % 20.9 Monocytes % 5.6 D Eosinophils % 1.0 D Basophils % 0.5 Nucleated RBC % 0 PT with INR 10.80 INR 0.92 PTT (Actin FS) 31.1 Sodium 135 L Potassium 4.0 Chloride 100 Carbon Dioxide 28 Anion Gap 7 L BUN 9.5 Creatinine 0.8 Est GFR (CKD-EPI)AfAm 120.72 Est GFR (CKD-EPI)NonAf 104.16 Random Glucose 297 H Lactic Acid Calcium 9.1 Total Bilirubin 0.4 AST 13 L ALT 25 Alkaline Phosphatase 66 LD Total Total Protein 7.2 Albumin 4.0 Total Amylase 107 Lipase 216 Blood Type Antibody Screen 10/19/18 05:55 RBC 5.08 MCV 86.7 MCHC 35.8 RDW 13.3 MPV 8.8 Neutrophils % 72.0 Lymphocytes % 20.9 Monocytes % 5.6 D Eosinophils % 1.0 D Basophils % 0.5 - Medications Given in the ED: ED Medications Discontinued Medications Generic Name Dose Route Start Last Admin Trade Name Drake PRN Reason Stop Dose Admin Acetaminophen 1,000 mg 10/19/18 06:30 10/19/18 06:40 Ofirmev Injection - IVPB 10/19/18 06:31 1,000 mg ONCE ONE Administration Famotidine/Sodium Chloride 20 mg in 50 mls @ 100 mls/hr 10/19/18 05:43 06:15 Pepcid 20 Mg Premixed Ivpb - IVPB 10/19/18 06:12 100 mls/hr ONCE ONE Administration Sodium Chloride 1,000 mls @ 1,000 mls/hr 10/19/18 05:43 10/19/18 06:24 Normal Saline - IV 10/19/18 06:42 Not Given ASDIR STA Dextrose/Sodium Chloride 1,000 mls @ 1,000 mls/hr 10/19/18 05:52 10/19/18 06: 00 D5-Ns - IV 10/19/18 06:51 1,000 mls/hr ONCE ONE Administration Dextrose/Sodium Chloride 1,000 mls @ 1,000 mls/hr 10/19/18 05:52 10/19/18 06: 00 D5-Ns - IV 10/19/18 06:51 1,000 mls/hr ONCE ONE Administration Dextrose/Sodium Chloride 1,000 mls @ 1,000 mls/hr 10/19/18 05:56 10/19/18 06: 24 D5-Ns - IV 10/19/18 06:55 Not Given ONCE ONE Metoclopramide HCl 10 mg 10/19/18 07:10 10/19/18 07:27 Reglan Injection - IVPUSH 10/19/18 07:11 10 mg ONCE ONE Administration Morphine Sulfate 4 mg 10/19/18 05:44 10/19/18 06:24 Morphine Injection - IVPUSH 10/19/18 05:45 Not Given ONCE ONE Ondansetron HCl 4 mg 10/19/18 06:32 10/19/18 06:40 Zofran Injection IVPUSH 10/19/18 06:33 4 mg ONCE ONE Administration Ondansetron HCl 4 mg 10/19/18 07:08 10/19/18 07:27 Zofran Injection IVPUSH 10/19/18 07:09 Not Given NOW ONE <Farideh Nazario - Last Filed: 10/19/18 14:17> Medical Decision Making - Medical Decision Making 10/19/18 13:53 pt feeling improved abd soft nontender pt tolerating oral intake suspect his sypmtoms secondary to gastritis - has a long history of it and fell asleep right before onset of his pain. discussed diet instructions, for him to continue his nexium. and to fu wit [facility] GI doctor in [facility] return precautions were dsicussed <Valdemar Galeas - Last Filed: 10/19/18 13:53> - Medical Decision Making 10/19/18 08:[address] Le 48 yo M NIDDM, H pylori 1 year ago, presenting with nausea, vomiting, and abdominal pain, recently in ED for same complaints. Fill followup labs, serial abdominal exams Will followup surgery consult and GI consult for intractable emesis 10/19/18 14:16 patient symptoms improved. no longer vomiting. tolerated PO challenge. comfortbale going home with scripts and f/u with GI Discussed diet, meds, and return precautions. Niece at bedside is comfortable with instructions as well <Farideh Nazario - Last Filed: 10/19/18 14:17> *DC/Admit/Observation/Transfer - Discharge Dispostion Decision to Admit order: No <Valdemar Galeas - Last Filed: 10/19/18 13:53> <Farideh Nazario - Last Filed: 10/19/18 14:17> Diagnosis at time of Disposition: Gastritis Qualifiers: Gastritis type: unspecified gastritis Chronicity: acute Gastritis bleeding: without bleeding Qualified Code(s): K29.00 - Acute gastritis without bleeding - Discharge Dispostion Disposition: HOME Condition at time of disposition: Improved - Referrals Referrals: Heber Sharma MD [Primary Care Provider] - - Patient Instructions Printed Discharge Instructions: DI for Gastritis Additional Instructions: Regrese al servicio de urgencias inmediatamente con CUALQUIER sntoma nuevo, persistente o que empeore, incluido dolor abdominal recurrente, fiebre, escalofros, incapacidad para tolerar la ingesta oral o cualquier otra inquietud. Mantngase alejado del alcohol, comidas picantes, cafena, comidas cidas / cidas. [place] al menos 3-4 horas antes de irse a dormir por la noche. [place] maalox si tiene ardor para alivio. Continuar usando nexium segn lo prescrito. DEBE llamar y hacer un seguimiento con ricketts mdico y gastroenterlogo dentro de los 5 [place] para inna evaluacin adicional de princess sntomas. Ricketts visita al departamento de emergencias no est completa sin un seguimiento con ricketts mdico para ricketts reevaluacin. Los resultados fueron discutidos con usted. Asegrese de que ricketts mdico revise los resultados de ricketts evaluacin de emergencia. ===== Return to the emergency department immediately with ANY new, persistent or worsening symptoms including any recurrent abdominal pain, fevers, chills, inability to tolerate oral intake or any other concerns. Stay away from alcohol, spicy foods, caffeine, acidic/sour foods. Eat atleast 3-4 hours before going to sleep at night. Take maalox if you have burning for relief. Continue using nexium as prescribed. You MUST call and follow up with your doctor and chicken boner within 5 days for further evaluation of your symptoms. Your emergency department visit is not complete without a followup with your doctor for reevaluation. Results were discussed with you. Please make sure your doctor reviews the results of your emergency evaluation. Print Language: CROATIAN - Post Discharge Activity
[2018-10-19 09:28] LABS: ACETONE SERUM NEGATIVE (NEGATIVE)
[2018-10-19] MEDS ORDERED: SUCRALFATE 1 GM/10 ML UNIT DOSE CUPS PO ONE (14:14)
[2018-10-19 14:21] VITALS: BP 160/98; PULSE 99; TEMP 99.3
== END 2018-10-19 14:15 | disposition home or self-care (01) ==
LOC: JER 05:15
DX: K29.00 Acute gastritis without bleeding (principal)
CPT/HCPCS: 36415; 80053; 82009; 82150; 83605; 83615; 83690; 85025; 85610; 85730; 86850; 86900; 86901; 99284-25; J0131

== ENCOUNTER 2019-05-12 17:19 | Emergency (ER) | payer OTHER ==
--- NOTE | 2019-05-12 17:28 | PDOC ---
Rapid Medical Evaluation Time Seen by Provider: 05/12/19 17:24 Medical Evaluation: Allergies Allergy/AdvReac Type Severity Reaction Status Date / Time metronidazole Allergy Verified 10/19/18 06:58 05/12/19 17:24 I have performed a brief in-person evaluation of this patient. The patient presents with a chief complaint of: LLQ pain + vomiting x 2 days, denies diarrhea, last BM yesterday and normal. hx of h. pylori Pertinent physical exam findings: TTP to LLQ, otherwise well appearing I have ordered the following: labs, IVF, zofran The patient will proceed to the ED for further evaluation. Discharge Disposition - Diagnosis Vomiting - Referrals Referrals: Heber Sharma MD [Primary Care Provider] - - Patient Instructions - Post Discharge Activity
[2019-05-12 17:32] VITALS: BMI 27.8
[2019-05-12 18:27] LABS: BASO % 0.3 % (0-2.0); EOS % 1.8 % (0-4.5); HEMATOCRIT 50.3 % (35.4-49); HEMOGLOBIN 17.3 GM/dL (11.7-16.9); LYMPH % 34.7 % (8-40); MCH 30.4 pg (25.7-33.7); MCHC 34.3 g/dl (32.0-35.9); MEAN CELL VOLUME 88.5 fl (80-96); MONO % 7.2 % (3.8-10.2); PLATELET COUNT 250 K/MM3 (134-434); RBC 5.68 M/mm3 (4.00-5.60); RDW 13.5 % (11.9-15.9)
[2019-05-12 18:53] LABS: ALBUMIN 4.7 g/dl (3.4-5.0); BILIRUBIN,TOTAL 0.9 mg/dL (0.2-1); BLOOD UREA NITROGEN 15.7 mg/dL (7-18); CALCIUM 9.5 mg/dL (8.5-10.1); CREATININE 0.9 mg/dL (0.55-1.3); POTASSIUM 4.5 mmol/L (3.5-5.1); TOT PROT 8.4 g/dl (6.4-8.2)
--- NOTE | 2019-05-12 19:34 | PDOC ---
*Physical Exam - Vital Signs Last Vital Signs Temp Pulse Resp BP Pulse Ox 103 H 14 126/87 97 05/12/19 17:23 05/12/19 17:23 05/12/19 17:23 05/12/19 17:23 ED Treatment Course - LABORATORY CBC & Chemistry Diagram: 05/12/19 17:46 05/12/19 17:46 - ADDITIONAL ORDERS Additional order review: Laboratory Results 05/12/19 17:46 Sodium 133 L Potassium 4.5 Chloride 97 L Carbon Dioxide 31 Anion Gap 5 L BUN 15.7 Creatinine 0.9 Est GFR (CKD-EPI)AfAm 115.02 Est GFR (CKD-EPI)NonAf 99.24 Random Glucose 236 H Calcium 9.5 Total Bilirubin 0.9 AST 14 L ALT 35 Alkaline Phosphatase 88 Total Protein 8.4 H Albumin 4.7 Lipase 183 05/12/19 17:46 RBC 5.68 H MCV 88.5 MCHC 34.3 RDW 13.5 MPV 9.0 Neutrophils % 56.0 D Lymphocytes % 34.7 D Monocytes % 7.2 Eosinophils % 1.8 Basophils % 0.3 Medical Decision Making - Medical Decision Making 05/12/19 19:34 Patient seen by the advanced practice provider under my supervision. Ancillary testing reviewed as necessary. I agree with plan as outlined by the advanced practice provider. Discharge - Discharge Information Problems reviewed: Yes Clinical Impression/Diagnosis: Vomiting, Constipation - Follow up/Referral Referrals: Heber Sharma MD [Primary Care Provider] - - Patient Discharge Instructions - Post Discharge Activity
[2019-05-12] MEDS ORDERED: SODIUM CHLORIDE 1,000 ML IV STA (20:20)
[2019-05-12] MEDS ORDERED: ONDANSETRON 4 MG/2 ML VIAL IVPUSH ONE (20:20)
[2019-05-12] MEDS ORDERED: ONDANSETRON 4 MG/2 ML VIAL ONE (20:42)
--- NOTE | 2019-05-12 20:47 | PDOC ---
History of Present Illness - General Chief Complaint: Pain, Acute Stated Complaint: VOMITING/ ABD PAIN Time Seen by Provider: 05/12/19 17:24 History Source: Patient Exam Limitations: No Limitations Past History - Travel Traveled outside of the country in the last 30 days: No Close contact w/someone who was outside of country & ill: No - Past Medical History Allergies/Adverse Reactions: Allergies Allergy/AdvReac Type Severity Reaction Status Date / Time metronidazole Allergy Verified 05/12/19 17:32 Home Medications: Ambulatory Orders Aspirin [Aspirin EC] 81 mg PO DAILY 12/25/13 Insulin Glargine,Hum.rec.anlog [Lantus (10mL VIAL) -] 20 units SQ DAILY Ondansetron [Zofran Odt -] 4 mg SL TID #21 od.tablet 10/21/17 Acetaminophen [Tylenol] 325 mg PO Q4H PRN 10/19/18 Fluticasone Prop 0.05% Nasal [Flonase -] 1 - 2 spray NS DAILY 10/19/18 Insulin Lispro [Humalog] 10 unit SQ AC 10/19/18 Lisinopril 10 mg PO DAILY 10/19/18 Timolol [Betimol] 1 drop OU BID 10/19/18 Polyethylene Glycol 3350 [Miralax (For Bowel Prep) -] 17 gm PO DAILY #1 bottle 05/12/19 COPD: No DVT: No Diabetes: Yes GI Disorders: Yes (h pylori) Other medical history: r lobectomy - Immunization History Immunization Up to Date: Yes - Psycho Social/Smoking Cessation Hx Smoking History: Never smoked Have you smoked in the past 12 months: No Number of Cigarettes Smoked Daily: 0 Hx Alcohol Use: No Drug/Substance Use Hx: No Substance Use Type: None Review of Systems - Review of Systems Able to Perform ROS?: Yes Comments:: 05/12/19 20:58 CONSTITUTIONAL: Absent: fever, chills, diaphoresis, generalized weakness, malaise, loss of appetite HEENT: Absent: rhinorrhea, nasal congestion, throat pain, throat swelling, difficulty swallowing, mouth swelling, ear pain, eye pain, visual Changes CARDIOVASCULAR: Absent: chest pain, loss of consciousness, palpitations, irregular heart rate, peripheral edema RESPIRATORY: Absent: cough, shortness of breath, dyspnea with exertion, orthopnea, wheezing, stridor, hemoptysis GASTROINTESTINAL: Present: Abdominal pain, nausea and vomiting. Absent: abdominal distension, diarrhea, constipation, melena, hematochezia GENITOURINARY: Absent: dysuria, frequency, urgency, hesitancy, hematuria, flank pain, genital pain MUSCULOSKELETAL: Absent: myalgia, arthralgia, joint swelling SKIN: Absent: rash, itching, pallor NEUROLOGIC: Absent: headache, focal weakness or paresthesias, dizziness, unsteady gait, seizure, mental status changes, bladder or bowel incontinence PSYCHIATRIC: Absent: anxiety, depression, suicidal or homicidal ideation, hallucinations. Is the patient limited Marshallese proficient: No *Physical Exam - Vital Signs Last Vital Signs Temp Pulse Resp BP Pulse Ox 103 H 14 126/87 97 05/12/19 17:23 05/12/19 17:23 05/12/19 17:23 05/12/19 17:23 - Physical Exam 05/12/19 20:58 GENERAL: Well developed, well nourished. Awake and alert. No acute distress. HEENT: Normocephalic, atraumatic. PERRLA, EOMI. No conjunctival pallor. Sclera are non- icteric. Moist mucous membranes. NECK: Supple. Full ROM. CARDIOVASCULAR: Regular rate and rhythm. No murmurs, rubs, or gallops. Distal pulses are 2+ and symmetric. PULMONARY: No evidence of respiratory distress. Lungs clear to auscultation bilaterally. No wheezing, rales or rhonchi. ABDOMINAL: Tenderness palpation of the left lower quadrant. Soft. Non-distended. No rebound or guarding. No organomegaly. Normoactive bowel sounds. MUSCULOSKELETAL Normal range of motion at all joints. No bony deformities or tenderness. No CVA tenderness. EXTREMITIES: No cyanosis. No clubbing. No edema. No calf tenderness. SKIN: Warm and dry. Normal capillary refill. No rashes. No jaundice. NEUROLOGICAL: Alert, awake, appropriate. Cranial nerves 2-12 intact. No deficits to light touch and temperature in face, upper extremities and lower extremities. No motor deficits in the in face, upper extremities and lower extremities. Normoreflexic in the upper and lower extremities. Normal speech. Toes are down- going bilaterally. Gait is normal without ataxia. PSYCHIATRIC: Cooperative. Good eye contact. Appropriate mood and affect. ED Treatment Course - LABORATORY CBC & Chemistry Diagram: 05/12/19 17:46 05/12/19 17:46 - ADDITIONAL ORDERS Additional order review: Laboratory Results 05/12/19 17:46 Sodium 133 L Potassium 4.5 Chloride 97 L Carbon Dioxide 31 Anion Gap 5 L BUN 15.7 Creatinine 0.9 Est GFR (CKD-EPI)AfAm 115.02 Est GFR (CKD-EPI)NonAf 99.24 Random Glucose 236 H Calcium 9.5 Total Bilirubin 0.9 AST 14 L ALT 35 Alkaline Phosphatase 88 Total Protein 8.4 H Albumin 4.7 Lipase 183 05/12/19 17:46 RBC 5.68 H MCV 88.5 MCHC 34.3 RDW 13.5 MPV 9.0 Neutrophils % 56.0 D Lymphocytes % 34.7 D Monocytes % 7.2 Eosinophils % 1.8 Basophils % 0.3 - RADIOLOGY Radiology Studies Ordered: Category Date Time Status ABDOMEN & PELVIS CT WITH CONTR [CT] Stat CT Scan 05/12/19 20:25 Ordered Medical Decision Making - Medical Decision Making 05/12/19 20:59 Patient is a 48-year-old male with past medical history of insulin-dependent diabetes, glaucoma, presents to the ER today for lower abdominal pain for 2 days. He states that the pain has been mostly in his left lower quadrant. He states that the pain has been dull and constant. He states that it hurts to have a bowel movement. He states his last bowel movement was yesterday normal for him. He denies any blood in the stool. He denies urinary symptoms. He states he has also been throwing up and unable to keep anything down. A/P: Abdominal pain. On exam tenderness palpation of the left lower quadrant within the left groin. Differential diagnosis includes but is not limited to diverticulitis, hernia, small bowel obstruction, UTI, kidney stone Labs from [facility] show a concentrated H&H otherwise unremarkable. Fluids, Zofran ordered. CAT scan to rule out any intra-abdominal pathology placed Reevaluate 05/12/19 23:18 Abdominal pain improved after medication. CT shows constipation, no evidence of acute pathology Discharge home with symptomatic relief and primary care follow-up. GI referral given. Discharge home I discussed the physical exam findings, ancillary test results and final diagnoses with the patient. I answered all of the patient's questions. The patient was satisfied with the care received and felt comfortable with the discharge plan and treatment plan. The Patient agrees to follow up with the primary care physician/specialist within 24-72 hours. Return precautions were given. Discharge - Discharge Information Problems reviewed: Yes Clinical Impression/Diagnosis: Vomiting Qualifiers: Vomiting type: unspecified Vomiting Intractability: non-intractable Nausea presence: with nausea Qualified Code(s): R11.2 - Nausea with vomiting, unspecified Constipation Qualifiers: Constipation type: unspecified constipation type Qualified Code(s): K59.00 - Constipation, unspecified Condition: Stable Disposition: HOME - Admission No - Follow up/Referral Referrals: Heber Sharma MD [Primary Care Provider] - Napoleon Che MD [Staff Physician] - - Patient Discharge Instructions Patient Printed Discharge Instructions: DI for Constipation Additional Instructions: Your CAT scan today showed that you are constipated. This is most likely causing your pain. Please take the MiraLAX as directed to help soften your stool. Eat a diet high in fiber to help with regularity. This includes fruits and vegetables. Please follow-up with your primary care doctor this week. You are also given a referral to see a entry level installation technician. Please follow-up within the week. Return to the ER for worsening pain, vomiting or if you have any changes in your symptoms - Post Discharge Activity Work/Back to School Note: Back to Work
[2019-05-12 21:02] LABS: PH,URINE 7.5 (5.0-8.0); URINE APPEARANCE CLEAR; URINE BILIRUBIN NEGATIVE (NEGATIVE); URINE COLOR YELLOW; URINE GLUCOSE (UA) 2+ (NEGATIVE); URINE KETONE 1+ (NEGATIVE); URINE LEUK ESTERASE NEGATIVE (NEGATIVE); URINE NITRITE NEGATIVE (NEGATIVE); URINE PROTEIN TRACE (NEGATIVE)
[2019-05-12 23:03] VITALS: BP 132/74; PULSE 79
== END 2019-05-12 23:30 | disposition home or self-care (01) ==
LOC: JER 17:19
PROC: 3E033GC Introduction of Other Therapeutic Substance into Peripheral Vein, Percutaneous Approach (ICD-10-PCS; principal; 2019-05-12)
DX: R11.10 Vomiting, unspecified (principal); Z88.8 Allergy status to other drugs, medicaments and biological substances
CPT/HCPCS: 36415; 74177-TC; 80053; 81003; 83690; 85025; 87086; 99285-25; J7030; Q9967

== ENCOUNTER 2019-05-14 00:28 | Emergency (ER) | payer OTHER ==
[2019-05-14 00:40] VITALS: TEMP 97.6; BMI 25.8
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
[2019-05-14 03:06] LABS: BASO % 0.8 % (0-2.0); EOS % 1.3 % (0-4.5); HEMATOCRIT 48.7 % (35.4-49); HEMOGLOBIN 16.6 GM/dL (11.7-16.9); LYMPH % 37.7 % (8-40); MCH 30.3 pg (25.7-33.7); MCHC 34.2 g/dl (32.0-35.9); MEAN CELL VOLUME 88.7 fl (80-96); MONO % 8.3 % (3.8-10.2); NEUT % 51.9 % (42.8-82.8); PLATELET COUNT 224 K/MM3 (134-434); RBC 5.49 M/mm3 (4.00-5.60); RDW 13.4 % (11.9-15.9); WHITE BLOOD COUNT 6.6 K/mm3 (4.0-10.0)
[2019-05-14 03:43] LABS: ALBUMIN 4.3 g/dl (3.4-5.0); ALK PHOS 80 U/L (45-117); ANION GAP 6 MMOL/L (8-16); BILIRUBIN,TOTAL 0.7 mg/dL (0.2-1); CALCIUM 9.1 mg/dL (8.5-10.1); CHLORIDE 100 mmol/L (98-107); CO2 28 mmol/L (21-32); GLUCOSE,RANDOM 282 mg/dL (74-106); POTASSIUM 4.6 mmol/L (3.5-5.1); SGOT/AST 9 U/L (15-37); SGPT/ALT 29 U/L (13-61); SODIUM 135 mmol/L (136-145); TOT PROT 7.7 g/dl (6.4-8.2)
[2019-05-14] MEDS ORDERED: ACETAMINOPHEN 500 MG TABLET (FP) PO ONE (03:49)
[2019-05-14] MEDS ORDERED: ACETAMINOPHEN 325 MG TABLET (FP) ONE (03:51)
[2019-05-14 04:21] VITALS: BP 130/72; PULSE 82
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
--- NOTE | 2019-05-14 10:59 | EKG ---
Test Reason : Blood Pressure : / mmHG Vent. Rate : 099 BPM Atrial Rate : 099 BPM P-R Int : 146 ms QRS Dur : 086 ms QT Int : 348 ms P-R-T Axes : 061 065 035 degrees QTc Int : 446 ms NORMAL SINUS RHYTHM WHEN COMPARED WITH ECG OF 17-OCT-2018 13:16, NO SIGNIFICANT CHANGE WAS FOUND Confirmed by JACE BERMUDEZ MD ([id number]) on 05/14/2019 10:59:24 AM Referred By: Confirmed By:JACE BERMUDEZ MD
== END 2019-05-14 04:21 | disposition home or self-care (01) ==
LOC: JER 00:28
DX: S00.83XA Contusion of other part of head, initial encounter (principal); Y04.2XXA Assault by strike against or bumped into by another person, initial encounter; Y93.89 Activity, other specified; Y92.89 Other specified places as the place of occurrence of the external cause; Y99.8 Other external cause status; Y07.9 Unspecified perpetrator of maltreatment and neglect; E11.9 Type 2 diabetes mellitus without complications; Z79.4 Long term (current) use of insulin; Z87.19 Personal history of other diseases of the digestive system; Z88.8 Allergy status to other drugs, medicaments and biological substances
CPT/HCPCS: 36415; 70450-TC; 71046-TC-FY; 80053; 82550; 82962; 84484; 85025; 93005; 93010; 99285-25

== ENCOUNTER 2020-08-12 22:43 | Emergency (ER) | payer OTHER ==
[2020-08-12 22:49] VITALS: BP 137/95; PULSE 100; TEMP 98.6; BMI 29.0
[2020-08-12] MEDS ORDERED: ACETAMINOPHEN 500 MG TABLET (FP) PO ONE (23:21)
[2020-08-12] MEDS ORDERED: ACETAMINOPHEN 325 MG TABLET (FP) ONE (23:28)
[2020-08-12] MEDS ORDERED: LIDOCAINE 5% TOPICAL PATCH TP ONE (23:43)
[2020-08-13] MEDS ORDERED: LIDOCAINE 5% TOPICAL PATCH ONE (00:14)
[2020-08-13] MEDS ORDERED: KETOROLAC TROMETHAMINE 30 MG/1 ML VIAL IM ONE (01:07)
[2020-08-13] MEDS ORDERED: KETOROLAC TROMETHAMINE 30 MG/1 ML VIAL ONE (01:13)
== END 2020-08-13 01:27 | disposition home or self-care (01) ==
LOC: JER 22:43
PROC: 3E0233Z Introduction of Anti-inflammatory into Muscle, Percutaneous Approach (ICD-10-PCS; principal; 2020-08-13)
DX: Z04.1 Encounter for examination and observation following transport accident (principal)
CPT/HCPCS: 70450-TC; 72125-TC; 96372; 99285-25

== ENCOUNTER 2020-08-23 15:31 | Observation (INO) | payer OTHER ==
[2020-08-23 17:02] LABS: BASO % 0.3 % (0-2.0); EOS % 0.2 % (0-4.5); HEMATOCRIT 43.4 % (35.4-49); HEMOGLOBIN 15.4 GM/dL (11.7-16.9); LYMPH % 17.3 % (8-40); MCH 30.6 pg (25.7-33.7); MCHC 35.6 g/dl (32.0-35.9); MEAN PLT VOLUME 8.4 fl (7.5-11.1); MONO % 4.2 % (3.8-10.2); PH,URINE 7.5 (5.0-8.0); PLATELET COUNT 243 K/MM3 (134-434); RBC 5.04 M/mm3 (4.00-5.60); RDW 13.3 % (11.9-15.9); URINE APPEARANCE CLEAR; URINE BILIRUBIN NEGATIVE (NEGATIVE); URINE COLOR YELLOW; URINE GLUCOSE (UA) 3+ (NEGATIVE); URINE KETONE 2+ (NEGATIVE); URINE LEUK ESTERASE NEGATIVE (NEGATIVE); URINE NITRITE NEGATIVE (NEGATIVE); URINE PROTEIN TRACE (NEGATIVE); URINE UROBILINOGEN 0.2 mg/dL (0.2-1.0)
[2020-08-23 17:07] LABS: INR 0.95 (0.83-1.09); PROTHROMBIN TIME (PATIENT) 11.5 SEC (9.7-13.0)
[2020-08-23 17:10] LABS: ACTIVATED PTT 25.2 SECONDS (25.2-36.5)
[2020-08-23] MEDS ORDERED: FAMOTIDINE 20 MG/50 ML IVPB 20 MG/50 ML MG IVPB ONE ×2 (17:14→17:35)
[2020-08-23] MEDS ORDERED: MAG HYDROX/AL HYDROX/SIMETH 30 ML UNIT-DOSE CUP PO ONE (17:14)
[2020-08-23] MEDS ORDERED: ONDANSETRON 4 MG TABLET PO PRN (17:14)
[2020-08-23 17:17] LABS: CHLORIDE 100 mmol/L (98-107); SODIUM 134 mmol/L (136-145)
[2020-08-23 17:19] LABS: CALCIUM 9.2 mg/dL (8.5-10.1)
[2020-08-23 17:20] LABS: ALBUMIN 4.3 g/dl (3.4-5.0); ANION GAP 11 MMOL/L (8-16); BLOOD UREA NITROGEN 12.4 mg/dL (7-18); CO2 24 mmol/L (21-32); GLUCOSE,RANDOM 279 mg/dL (74-106); LIPASE 99 U/L (73-393)
[2020-08-23 17:23] LABS: CREATININE 0.7 mg/dL (0.55-1.3); SGOT/AST 12 U/L (15-37); SGPT/ALT 25 U/L (13-61)
[2020-08-23 17:25] LABS: BILIRUBIN,TOTAL 0.9 mg/dL (0.2-1); TOT PROT 7.5 g/dl (6.4-8.2)
[2020-08-23 17:26] LABS: ALK PHOS 70 U/L (45-117)
[2020-08-23] MEDS ORDERED: SODIUM CHLORIDE 1,000 ML IV SCH ×2 (17:30→23:45)
[2020-08-23] MEDS ORDERED: MAG HYDROX/AL HYDROX/SIMETH 30 ML UNIT-DOSE CUP ONE (17:35)
[2020-08-23] MEDS ORDERED: ACETAMINOPHEN 1000 MG/100 ML VIAL (NON FORMULARY) IVPB ONE (18:09)
[2020-08-23] MEDS ORDERED: ACETAMINOPHEN INJECTION 100 ML IVPB ONE (19:14)
[2020-08-23] MEDS ORDERED: ONDANSETRON 4 MG/2 ML VIAL IVPUSH ONE (19:17)
[2020-08-23] MEDS ORDERED: ONDANSETRON 4 MG/2 ML VIAL ONE (19:23)
[2020-08-23] MEDS ORDERED: METOCLOPRAMIDE HCL INJECTION 10 MG/2 ML VIAL IVPB ONE (21:33)
[2020-08-23] MEDS ORDERED: morphine CARPU-JECT 2 MG/1 ML DISP.SYRIN IVPUSH ONE (21:34)
[2020-08-23] MEDS ORDERED: MORPHINE SULFATE 2 MG/ML VIAL ONE (21:57)
[2020-08-23] MEDS ORDERED: METOCLOPRAMIDE HCL INJECTION 10 MG/2 ML VIAL ONE (21:57)
[2020-08-23] MEDS ORDERED: DOCUSATE SODIUM 100 MG CAPSULE (FP) PO PRN (23:37)
[2020-08-23] MEDS ORDERED: METOCLOPRAMIDE HCL INJECTION 10 MG/2 ML VIAL IVPUSH PRN (23:40)
[2020-08-24] MEDS ORDERED: SUCRALFATE 1 GM TABLET (FP) ONE (00:29)
[2020-08-24] MEDS ORDERED: MAGNESIUM HYDROX 2400MG/30ML ORAL SUSPENSION 30 ML CUP PO PRN (00:33)
[2020-08-24] MEDS: SUCRALFATE 1 GM TABLET (FP) PO SCH ×2 (00:53→09:39)
[2020-08-24 03:53] VITALS: BMI 27.8
[2020-08-24] MEDS: INSULIN SLIDING SCALE (NOVOLOG) 1 VIAL SQ SCH ×4 (06:43→22:02)
[2020-08-24 08:35] LABS: BASO % 0.5 % (0-2.0); EOS % 0.3 % (0-4.5); HEMATOCRIT 41.6 % (35.4-49); HEMOGLOBIN 14.6 GM/dL (11.7-16.9); LYMPH % 31.5 % (8-40); MCH 30.5 pg (25.7-33.7); MCHC 34.9 g/dl (32.0-35.9); MEAN CELL VOLUME 87.4 fl (80-96); MEAN PLT VOLUME 8.7 fl (7.5-11.1); MONO % 8.4 % (3.8-10.2); NEUT % 59.3 % (42.8-82.8); PLATELET COUNT 248 K/MM3 (134-434); RBC 4.77 M/mm3 (4.00-5.60); RDW 13.4 % (11.9-15.9); WHITE BLOOD COUNT 6.6 K/mm3 (4.0-10.0)
[2020-08-24 09:03] LABS: CALCIUM 8.8 mg/dL (8.5-10.1)
[2020-08-24 09:04] LABS: ALBUMIN 3.9 g/dl (3.4-5.0); BLOOD UREA NITROGEN 12.1 mg/dL (7-18); MAGNESIUM 2.1 mg/dL (1.8-2.4)
[2020-08-24 09:06] LABS: CREATININE 0.7 mg/dL (0.55-1.3)
[2020-08-24 09:07] LABS: PHOSPHOROUS 2.6 mg/dL (2.5-4.9)
[2020-08-24 09:08] LABS: BILIRUBIN,TOTAL 0.8 mg/dL (0.2-1); TOT PROT 6.9 g/dl (6.4-8.2)
[2020-08-24] MEDS: ENOXAPARIN NA (PORCINE) 40 MG/0.4 ML DISP.SYRIN SQ SCH (09:39)
[2020-08-24] MEDS: POLYETHYLENE GLYCOL 3350 119 GM BTL PO SCH (09:39)
[2020-08-24] MEDS: LISINOPRIL 10 MG TABLET PO SCH (09:39)
[2020-08-24] MEDS: ASPIRIN COATED 81 MG TABLET.EC PO SCH (09:39)
[2020-08-24] MEDS: PANTOPRAZOLE 40 MG TABLET PO SCH (12:57)
[2020-08-24] MEDS ORDERED: MAGNESIUM CITRATE 300 ML BOTTLE PO ONE (13:00)
[2020-08-24] MEDS: MAG HYDROX/AL HYDROX/SIMETH 30 ML UNIT-DOSE CUP PO PRN (16:09)
[2020-08-24] MEDS ORDERED: METOCLOPRAMIDE HCL INJECTION 10 MG/2 ML VIAL IVPUSH ONE (19:14)
[2020-08-24] MEDS ORDERED: morphine SULFATE 4 MG/ML VIAL IVPUSH ONE (21:44)
[2020-08-25] MEDS: INSULIN SLIDING SCALE (NOVOLOG) 1 VIAL SQ SCH ×4 (06:03→21:16)
[2020-08-25] MEDS: POLYETHYLENE GLYCOL 3350 119 GM BTL PO SCH (09:52)
[2020-08-25] MEDS: LISINOPRIL 10 MG TABLET PO SCH (09:52)
[2020-08-25] MEDS: ENOXAPARIN NA (PORCINE) 40 MG/0.4 ML DISP.SYRIN SQ SCH (09:52)
[2020-08-25] MEDS: PANTOPRAZOLE 40 MG TABLET PO SCH (09:52)
[2020-08-25] MEDS: ASPIRIN COATED 81 MG TABLET.EC PO SCH (09:52)
[2020-08-25] MEDS: MAG HYDROX/AL HYDROX/SIMETH 30 ML UNIT-DOSE CUP PO PRN (10:03)
[2020-08-25] MEDS ORDERED: FAMOTIDINE 20 MG/50 ML IVPB 20 MG/50 ML MG IVPB ONE (12:02)
[2020-08-25] MEDS ORDERED: METOCLOPRAMIDE HCL INJECTION 10 MG/2 ML VIAL IVPUSH PRN (12:02)
[2020-08-25] MEDS ORDERED: ACETAMINOPHEN 1000 MG/100 ML VIAL (NON FORMULARY) IVPB ONE (12:03)
[2020-08-25] MEDS ORDERED: METOCLOPRAMIDE HCL INJECTION 10 MG/2 ML VIAL IVPUSH SCH (14:00)
[2020-08-25] MEDS ORDERED: ACETAMINOPHEN 325 MG TABLET (FP) PO PRN (14:27)
[2020-08-25] MEDS: METOCLOPRAMIDE HCL INJECTION 10 MG/2 ML VIAL IVPUSH SCH ×2 (17:15→23:29)
[2020-08-25] MEDS ORDERED: INSULIN (NOVOLOG) ASPART 100 UNITS/ML 10ML VIAL ONE (20:26)
[2020-08-25] MEDS: INSULIN (LEVEMIR) 100 UNITS/ML UNITS SQ SCH (21:16)
[2020-08-26] MEDS: METOCLOPRAMIDE HCL INJECTION 10 MG/2 ML VIAL IVPUSH SCH (05:24)
[2020-08-26] MEDS: INSULIN SLIDING SCALE (NOVOLOG) 1 VIAL SQ SCH ×2 (06:07→12:22)
[2020-08-26] MEDS: INSULIN (LEVEMIR) 100 UNITS/ML UNITS SQ SCH (06:10)
[2020-08-26] MEDS ORDERED: INSULIN (NOVOLOG) ASPART 100 UNITS/ML 10ML VIAL ONE (06:31)
[2020-08-26] MEDS: ASPIRIN COATED 81 MG TABLET.EC PO SCH (09:42)
[2020-08-26] MEDS: PANTOPRAZOLE 40 MG TABLET PO SCH (09:43)
[2020-08-26] MEDS: LISINOPRIL 10 MG TABLET PO SCH (09:43)
[2020-08-26] MEDS: ENOXAPARIN NA (PORCINE) 40 MG/0.4 ML DISP.SYRIN SQ SCH (09:43)
[2020-08-26] MEDS: POLYETHYLENE GLYCOL 3350 119 GM BTL PO SCH (09:48)
[2020-08-26 10:07] VITALS: BP 117/70; PULSE 85; TEMP 97.8
== END 2020-08-26 12:20 | disposition left against medical advice (07) ==
LOC: JER 15:31 → UNDOADMOB 21:35 → JERBED 21:35 → INTOOBSV 21:35 → JERBED 08-24 02:54 → J5S 08-24 02:54 → JERBED 08-24 13:40
PROVIDERS: ADMIT Hospitalist
PROC: 3E033GC Introduction of Other Therapeutic Substance into Peripheral Vein, Percutaneous Approach (ICD-10-PCS; principal; 2020-08-24)
PROC: 3E0337Z Introduction of Electrolytic and Water Balance Substance into Peripheral Vein, Percutaneous Approach (ICD-10-PCS; 2020-08-24)
PROC: 3E013VG Introduction of Insulin into Subcutaneous Tissue, Percutaneous Approach (ICD-10-PCS; 2020-08-24)
PROC: 3E033NZ Introduction of Analgesics, Hypnotics, Sedatives into Peripheral Vein, Percutaneous Approach (ICD-10-PCS; 2020-08-24)
DX: K59.00 Constipation, unspecified (principal); R20.8 Other disturbances of skin sensation; R63.4 Abnormal weight loss; R00.0 Tachycardia, unspecified; E11.9 Type 2 diabetes mellitus without complications; I10 Essential (primary) hypertension; K21.9 Gastro-esophageal reflux disease without esophagitis; K29.70 Gastritis, unspecified, without bleeding; B96.81 Helicobacter pylori [H. pylori] as the cause of diseases classified elsewhere; E05.90 Thyrotoxicosis, unspecified without thyrotoxic crisis or storm; Z29.9 Encounter for prophylactic measures, unspecified; Z79.4 Long term (current) use of insulin; E89.0 Postprocedural hypothyroidism
CPT/HCPCS: 36415; 71045-TC-FY; 74177-TC; 80053; 81003; 82962; 83036; 83690; 83735; 84100; 84439; 84443; 84484; 85025; 85610; 85730; 87086; 87338; 93005; 93010; 96361; 96365; 96366; 96372; 96375; 96376; 99285-25; C9803; G0378; J0131; Q9967; U0003; U0005

== ENCOUNTER 2020-10-11 10:40 | Inpatient (IN) | payer OTHER ==
[2020-10-11] MEDS ORDERED: PANTOPRAZOLE SODIUM 40 MG VIAL IVPB ONE (11:03)
[2020-10-11] MEDS ORDERED: METOCLOPRAMIDE HCL INJECTION 10 MG/2 ML VIAL IVPUSH ONE (11:03)
[2020-10-11] MEDS ORDERED: LACTATED RINGERS SOLUTION 1,000 ML IV STA ×2 (11:03→13:33)
[2020-10-11] MEDS ORDERED: morphine CARPU-JECT 4 MG/1 ML DISP.SYRIN IVPUSH ONE ×2 (11:03→15:41)
[2020-10-11] MEDS ORDERED: morphine SULFATE 4 MG/ML VIAL ONE ×2 (11:11→15:46)
[2020-10-11] MEDS ORDERED: METOCLOPRAMIDE HCL INJECTION 10 MG/2 ML VIAL ONE (11:11)
[2020-10-11] MEDS ORDERED: PANTOPRAZOLE SODIUM 40 MG VIAL ONE (11:11)
[2020-10-11 11:52] LABS: BASO % 0.3 % (0-2.0); EOS % 0.1 % (0-4.5); HEMATOCRIT 47.6 % (35.4-49); HEMOGLOBIN 16.2 GM/dL (11.7-16.9); LYMPH % 11.6 % (8-40); MCH 29.9 pg (25.7-33.7); MCHC 34.1 g/dl (32.0-35.9); MEAN CELL VOLUME 87.8 fl (80-96); MEAN PLT VOLUME 8.2 fl (7.5-11.1); MONO % 3.8 % (3.8-10.2); NEUT % 84.2 % (42.8-82.8); PLATELET COUNT 268 10^3/uL (134-434); RBC 5.42 M/mm3 (4.00-5.60); RDW 13.3 % (11.9-15.9); WHITE BLOOD COUNT 11.2 K/mm3 (4.0-10.0)
[2020-10-11 11:58] LABS: INR 0.91 (0.83-1.09)
[2020-10-11 12:01] LABS: ACTIVATED PTT 23.7 SECONDS (25.2-36.5)
[2020-10-11 12:13] LABS: CALCIUM 9.4 mg/dL (8.5-10.1)
[2020-10-11 12:14] LABS: ALBUMIN 3.9 g/dl (3.4-5.0); BLOOD UREA NITROGEN 22.9 mg/dL (7-18)
[2020-10-11 12:17] LABS: CREATININE 1.1 mg/dL (0.55-1.3)
[2020-10-11 12:18] LABS: BILIRUBIN,TOTAL 0.9 mg/dL (0.2-1); TOT PROT 7.5 g/dl (6.4-8.2)
[2020-10-11 12:32] LABS: LACTIC ACID 2.7 mmol/L (0.4-2.0)
[2020-10-11] MEDS ORDERED: ONDANSETRON 4 MG/2 ML VIAL IVPUSH ONE (15:21)
[2020-10-11] MEDS ORDERED: MAG HYDROX/AL HYDROX/SIMETH 30 ML UNIT-DOSE CUP PO ONE ×2 (15:21→15:23)
[2020-10-11] MEDS ORDERED: PANTOPRAZOLE SODIUM 160 MG in SODIUM CHLORIDE 290 ML IVPB SCH (15:45)
[2020-10-11] MEDS ORDERED: PANTOPRAZOLE SODIUM 80 MG in SODIUM CHLORIDE 100 ML IVPB SCH (15:45)
[2020-10-11] MEDS ORDERED: MAG HYDROX/AL HYDROX/SIMETH 30 ML UNIT-DOSE CUP ONE (15:46)
[2020-10-11] MEDS ORDERED: ONDANSETRON 4 MG/2 ML VIAL ONE (15:46)
[2020-10-11] MEDS ORDERED: MORPHINE SULFATE 2 MG/ML VIAL IVPUSH PRN (17:08)
[2020-10-11] MEDS ORDERED: ONDANSETRON 4 MG/2 ML VIAL IVPUSH PRN (17:13)
[2020-10-11] MEDS: SODIUM CHLORIDE 1,000 ML IV SCH (17:58)
[2020-10-11] MEDS ORDERED: LISINOPRIL 5 MG TABLET ONE (18:28)
[2020-10-11] MEDS: LISINOPRIL 10 MG TABLET PO SCH (18:36)
[2020-10-11 18:42] LABS: URINE APPEARANCE CLEAR; URINE BILIRUBIN NEGATIVE (NEGATIVE); URINE COLOR YELLOW; URINE GLUCOSE (UA) 3+ (NEGATIVE); URINE KETONE 4+ (NEGATIVE); URINE LEUK ESTERASE NEGATIVE (NEGATIVE); URINE NITRITE NEGATIVE (NEGATIVE); URINE PROTEIN NEGATIVE (NEGATIVE)
[2020-10-11] MEDS: PANTOPRAZOLE SODIUM 40 MG VIAL IVPUSH SCH (23:55)
[2020-10-12 04:36] VITALS: BMI 25.3
[2020-10-12] MEDS: SODIUM CHLORIDE 1,000 ML IV SCH (07:00)
[2020-10-12] MEDS: PANTOPRAZOLE SODIUM 40 MG VIAL IVPUSH SCH (09:45)
[2020-10-12] MEDS: LISINOPRIL 10 MG TABLET PO SCH (09:46)
[2020-10-12 09:49] VITALS: BP 116/63; PULSE 81; TEMP 98.4
[2020-10-12] MEDS ORDERED: ENOXAPARIN NA (PORCINE) 40 MG/0.4 ML DISP.SYRIN SQ SCH (10:00)
[2020-10-12 10:59] LABS: BASO % 0.3 % (0-2.0); EOS % 0.3 % (0-4.5); HEMATOCRIT 41.1 % (35.4-49); LYMPH % 22.7 % (8-40); MCH 30.2 pg (25.7-33.7); MEAN CELL VOLUME 88.8 fl (80-96); MEAN PLT VOLUME 8.2 fl (7.5-11.1); MONO % 6.2 % (3.8-10.2); NEUT % 70.5 % (42.8-82.8); PLATELET COUNT 218 10^3/uL (134-434); RBC 4.63 M/mm3 (4.00-5.60); RDW 13.6 % (11.9-15.9); WHITE BLOOD COUNT 6.5 K/mm3 (4.0-10.0)
[2020-10-12] MEDS ORDERED: METOCLOPRAMIDE HCL INJECTION 10 MG/2 ML VIAL IVPUSH PRN (11:55)
[2020-10-12 11:56] LABS: CALCIUM 8.7 mg/dL (8.5-10.1)
[2020-10-12 11:58] LABS: BLOOD UREA NITROGEN 14.3 mg/dL (7-18); MAGNESIUM 2.2 mg/dL (1.8-2.4)
[2020-10-12 11:59] LABS: ALBUMIN 3.6 g/dl (3.4-5.0)
[2020-10-12 12:00] LABS: CREATININE 0.9 mg/dL (0.55-1.3); PHOSPHOROUS 2.4 mg/dL (2.5-4.9)
[2020-10-12 12:02] LABS: BILIRUBIN,TOTAL 0.9 mg/dL (0.2-1); TOT PROT 6.8 g/dl (6.4-8.2)
[2020-10-13] MEDS ORDERED: PANTOPRAZOLE SODIUM 40 MG VIAL IVPUSH SCH (10:00)
== END 2020-10-12 15:17 | disposition left against medical advice (07) | DRG 74 ==
LOC: JER 10:40 → JERBED 15:41 → J6S 20:49
PROVIDERS: ATTEND Student in an Organized Health Care Education/Training Program
DX: E11.43 Type 2 diabetes mellitus with diabetic autonomic (poly)neuropathy (principal); E87.2 Acidosis; K29.70 Gastritis, unspecified, without bleeding; R11.2 Nausea with vomiting, unspecified; I10 Essential (primary) hypertension; K21.9 Gastro-esophageal reflux disease without esophagitis; E05.90 Thyrotoxicosis, unspecified without thyrotoxic crisis or storm; J45.909 Unspecified asthma, uncomplicated; K44.9 Diaphragmatic hernia without obstruction or gangrene; K31.84 Gastroparesis; Z86.19 Personal history of other infectious and parasitic diseases
CPT/HCPCS: 36415; 71045-TC-FY; 74174-TC; 80053; 81003; 82550; 83605; 83690; 83735; 84100; 84484; 85025; 85610; 85730; 86850; 86900; 86901; 93005; 93010; 99285-25; C9803; Q9967; U0003; U0005

== ENCOUNTER 2022-02-06 20:34 | Inpatient (IN) | payer OTHER ==
[2022-02-06] MEDS ORDERED: ONDANSETRON 4 MG/2 ML VIAL IVPUSH ONE ×3 (20:55→21:02)
[2022-02-06] MEDS ORDERED: SODIUM CHLORIDE 0.9% 500 ML INFUS.BAG IV ONE (20:57)
[2022-02-06] MEDS ORDERED: FAMOTIDINE 20 MG/50 ML IVPB 20 MG/50 ML MG IVPB ONE (21:03)
[2022-02-06] MEDS ORDERED: ACETAMINOPHEN 1000 MG/100 ML BAG IVPB ONE (21:03)
[2022-02-06] MEDS ORDERED: morphine CARPU-JECT 2 MG/1 ML DISP.SYRIN IVPUSH ONE ×2 (21:17→23:04)
[2022-02-06] MEDS ORDERED: ONDANSETRON 4 MG/2 ML VIAL ONE (21:18)
[2022-02-06] MEDS ORDERED: ACETAMINOPHEN INJECTION 100 ML IVPB ONE (21:18)
[2022-02-06] MEDS ORDERED: FAMOTIDINE 10 MG/ML VIAL IVPB ONE (21:19)
[2022-02-06 22:29] LABS: BASO % 0.2 % (0-2.0); EOS % 0.2 % (0-4.5); HEMATOCRIT 47.8 % (35.4-49); HEMOGLOBIN 16.4 GM/dL (11.7-16.9); LYMPH % 15.6 % (8-40); MCH 29.7 pg (25.7-33.7); MCHC 34.4 g/dl (32.0-35.9); MEAN CELL VOLUME 86.5 fl (80-96); MEAN PLT VOLUME 8.5 fl (7.5-11.1); PLATELET COUNT 325 10^3/uL (134-434); RBC 5.53 M/mm3 (4.00-5.60); RDW 13.6 % (11.9-15.9); WHITE BLOOD COUNT 8.1 K/mm3 (4.0-10.0)
[2022-02-06 22:41] LABS: CALCIUM 9.2 mg/dL (8.5-10.1)
[2022-02-06 22:42] LABS: ALBUMIN 4.2 g/dl (3.4-5.0); BLOOD UREA NITROGEN 10.8 mg/dL (7-18); MAGNESIUM 1.9 mg/dL (1.8-2.4)
[2022-02-06] MEDS ORDERED: MAG HYDROX/AL HYDROX/SIMETH 30 ML UNIT-DOSE CUP PO ONE (22:44)
[2022-02-06] MEDS ORDERED: METOCLOPRAMIDE HCL INJECTION 10 MG/2 ML VIAL IVPB ONE (22:44)
[2022-02-06 22:45] LABS: CREATININE 0.8 mg/dL (0.55-1.3); PHOSPHOROUS 2.2 mg/dL (2.5-4.9)
[2022-02-06 22:46] LABS: BILIRUBIN,TOTAL 0.7 mg/dL (0.2-1)
[2022-02-06 22:47] LABS: TOT PROT 8.3 g/dl (6.4-8.2)
[2022-02-06] MEDS ORDERED: METOCLOPRAMIDE HCL INJECTION 10 MG/2 ML VIAL ONE (22:55)
[2022-02-06] MEDS ORDERED: MAG HYDROX/AL HYDROX/SIMETH 30 ML UNIT-DOSE CUP ONE (22:55)
[2022-02-07] MEDS ORDERED: POTASSIUM PHOSPHATE 30 MM in SODIUM CHLORIDE 500 ML IVPB ONE (00:07)
[2022-02-07] MEDS: LACTATED RINGERS SOLUTION 1,000 ML/1,000 ML INFUS.BAG IV SCH ×2 (00:15→21:51)
[2022-02-07] MEDS ORDERED: LACTATED RINGERS SOLUTION 1,000 ML IV SCH (01:00)
[2022-02-07] MEDS ORDERED: NAPH,MB-DB/K PH,MBDB POWDER PACKET PO ONE (01:03)
[2022-02-07] MEDS ORDERED: INSULIN (NOVOLOG) ASPART 100 UNITS/ML 10ML VIAL SQ ONE (01:04)
[2022-02-07] MEDS ORDERED: ACETAMINOPHEN 1000 MG/100 ML BAG IVPB PRN (01:05)
[2022-02-07] MEDS: METOCLOPRAMIDE HCL INJECTION 10 MG/2 ML VIAL IVPUSH PRN ×2 (03:08→18:02)
[2022-02-07 04:14] VITALS: BMI 26.1
[2022-02-07] MEDS ORDERED: morphine CARPU-JECT 2 MG/1 ML DISP.SYRIN IM ONE (05:21)
[2022-02-07] MEDS: INSULIN SLIDING SCALE (NOVOLOG) 1 VIAL SQ SCH ×4 (06:19→22:07)
[2022-02-07] MEDS ORDERED: ALBUTEROL SO4 HFA INHALER IH PRN ×2 (08:18→08:54)
[2022-02-07 09:48] LABS: BASO % 0.6 % (0-2.0); EOS % 0.2 % (0-4.5); HEMATOCRIT 41.7 % (35.4-49); HEMOGLOBIN 14.5 GM/dL (11.7-16.9); LYMPH % 19.5 % (8-40); MCH 29.7 pg (25.7-33.7); MCHC 34.7 g/dl (32.0-35.9); MEAN CELL VOLUME 85.6 fl (80-96); MEAN PLT VOLUME 8.1 fl (7.5-11.1); MONO % 7.4 % (3.8-10.2); NEUT % 72.3 % (42.8-82.8); PLATELET COUNT 309 10^3/uL (134-434); RBC 4.87 M/mm3 (4.00-5.60); RDW 13.6 % (11.9-15.9); WHITE BLOOD COUNT 7.7 K/mm3 (4.0-10.0)
[2022-02-07] MEDS: PANTOPRAZOLE 40 MG TABLET PO SCH (09:58)
[2022-02-07] MEDS: LISINOPRIL 10 MG TABLET PO SCH (09:58)
[2022-02-07] MEDS: ENOXAPARIN NA (PORCINE) 40 MG/0.4 ML DISP.SYRIN SQ SCH (09:58)
[2022-02-07] MEDS ORDERED: PANTOPRAZOLE 20 MG TABLET PO SCH (10:00)
[2022-02-07 10:05] LABS: ALBUMIN 3.7 g/dl (3.4-5.0); BLOOD UREA NITROGEN 10.5 mg/dL (7-18); CALCIUM 8.5 mg/dL (8.5-10.1); MAGNESIUM 1.9 mg/dL (1.8-2.4)
[2022-02-07 10:09] LABS: CREATININE 0.7 mg/dL (0.55-1.3)
[2022-02-07 10:10] LABS: BILIRUBIN,TOTAL 0.8 mg/dL (0.2-1); TOT PROT 7.2 g/dl (6.4-8.2)
[2022-02-07 10:12] LABS: PHOSPHOROUS 3.1 mg/dL (2.5-4.9)
[2022-02-07 10:16] LABS: CHOLESTEROL 234 mg/dL (50-200); TRIGLYCERIDES 167 mg/dL (0-150)
[2022-02-07 10:17] LABS: LDL CHOLESTEROL (ONLY SJRH) 163 mg/dL (5-100)
[2022-02-07 10:20] LABS: HDL CHOLESTEROL 47 mg/dL (40-60)
[2022-02-07] MEDS ORDERED: LACTULOSE 20 GM/30 ML UDC (FOR ORAL USE ONLY) PO ONE (11:00)
[2022-02-07] MEDS: POLYETHYLENE GLYCOL (HEALTHYLAX) 3350 17 GM PACKET PO SCH ×2 (13:25→21:50)
[2022-02-07] MEDS: METOCLOPRAMIDE HCL INJECTION 10 MG/2 ML VIAL IVPUSH SCH (20:32)
[2022-02-07] MEDS ORDERED: TRIMETHOBENZAMIDE HCL 200MG/2ML INJ IM ONE (21:22)
[2022-02-07] MEDS ORDERED: DOCUSATE SODIUM 100 MG CAPSULE (FP) PO SCH (22:00)
[2022-02-07] MEDS ORDERED: MOMETASONE FUROATE 110 MCG/IH INHALER IH SCH (22:00)
[2022-02-07] MEDS ORDERED: SENNOSIDES 8.6MG TABLET (FP) PO SCH (22:00)
[2022-02-08 01:55] VITALS: RESP 18
[2022-02-08] MEDS: METOCLOPRAMIDE HCL INJECTION 10 MG/2 ML VIAL IVPUSH SCH ×2 (02:03→10:03)
[2022-02-08] MEDS: LACTATED RINGERS SOLUTION 1,000 ML/1,000 ML INFUS.BAG IV SCH (02:03)
[2022-02-08] MEDS: POLYETHYLENE GLYCOL (HEALTHYLAX) 3350 17 GM PACKET PO SCH ×2 (06:11→14:30)
[2022-02-08] MEDS: INSULIN SLIDING SCALE (NOVOLOG) 1 VIAL SQ SCH ×2 (06:17→12:50)
[2022-02-08 09:32] LABS: BASO % 0.3 % (0-2.0); EOS % 0.4 % (0-4.5); HEMATOCRIT 44.6 % (35.4-49); HEMOGLOBIN 15.2 GM/dL (11.7-16.9); LYMPH % 24.2 % (8-40); MCH 29.3 pg (25.7-33.7); MCHC 34.2 g/dl (32.0-35.9); MEAN CELL VOLUME 85.6 fl (80-96); MEAN PLT VOLUME 8.3 fl (7.5-11.1); MONO % 7.2 % (3.8-10.2); NEUT % 67.9 % (42.8-82.8); PLATELET COUNT 303 10^3/uL (134-434); RBC 5.21 M/mm3 (4.00-5.60); RDW 13.4 % (11.9-15.9); WHITE BLOOD COUNT 8.9 K/mm3 (4.0-10.0)
[2022-02-08] MEDS: PANTOPRAZOLE 40 MG TABLET PO SCH (10:03)
[2022-02-08] MEDS: ENOXAPARIN NA (PORCINE) 40 MG/0.4 ML DISP.SYRIN SQ SCH (10:03)
[2022-02-08] MEDS: LISINOPRIL 10 MG TABLET PO SCH (10:03)
[2022-02-08 10:21] LABS: BLOOD UREA NITROGEN 9.4 mg/dL (7-18)
[2022-02-08 10:24] LABS: BILIRUBIN,TOTAL 0.9 mg/dL (0.2-1)
[2022-02-08 10:27] LABS: TOT PROT 7.5 g/dl (6.4-8.2)
[2022-02-08 10:31] LABS: CREATININE 0.7 mg/dL (0.55-1.3)
[2022-02-08 10:33] LABS: ALBUMIN 3.7 g/dl (3.4-5.0)
[2022-02-08] MEDS ORDERED: ACETAMINOPHEN 1000 MG/100 ML BAG IVPB PRN (15:22)
[2022-02-08] MEDS ORDERED: METOCLOPRAMIDE HCL INJECTION 10 MG/2 ML VIAL IVPUSH SCH (16:30)
[2022-02-08 16:43] VITALS: BP 142/78; PULSE 96; TEMP 98.7
[2022-02-08] MEDS ORDERED: PEG 3350/NA SULF BICARB CL/KCL 4000 ML SOLN.RECON PO ONE (17:00)
== END 2022-02-08 16:56 | disposition left against medical advice (07) | DRG 74 ==
LOC: JER 20:34 → JERBED 23:17 → J8W 02-07 01:41 → OBSVTOIN 02-08 14:55
PROVIDERS: ADMIT Internal Medicine; ATTEND Nurse Practitioner Acute Care
DX: E11.43 Type 2 diabetes mellitus with diabetic autonomic (poly)neuropathy (principal); K21.9 Gastro-esophageal reflux disease without esophagitis; K31.84 Gastroparesis; Z79.4 Long term (current) use of insulin; E05.90 Thyrotoxicosis, unspecified without thyrotoxic crisis or storm; E11.65 Type 2 diabetes mellitus with hyperglycemia; K59.00 Constipation, unspecified; K59.09 Other constipation; Z53.29 Procedure and treatment not carried out because of patient's decision for other reasons; B96.81 Helicobacter pylori [H. pylori] as the cause of diseases classified elsewhere
CPT/HCPCS: 0241U-QW; 36415; 71045-TC-FY; 74018-TC-FY; 74177-TC; 80053; 80061; 82010; 82962; 83036; 83690; 83735; 84100; 85025; 93005; 93010; 99285-25; G0378; Q9967

== ENCOUNTER 2024-09-12 01:23 | Emergency (ER) | payer OTHER ==
[2024-09-12 01:47] VITALS: BMI 26.6
[2024-09-12 02:38] LABS: ABSOLUTE IMMATURE GRANULOCYTES 0.02 x10^3/uL (0.0-0.031); BASOPHILS # 0.06 x10^3/uL (0.01-0.08); EOSINOPHIL % 1.5 % (0.8-7.0); HEMATOCRIT 33.6 % (40.1-51.0); HEMOGLOBIN 10.7 g/dL (13.7-17.5); MCHC 31.8 g/dl (32.3-36.5); MEAN CELL VOLUME 87.7 fl (79.0-92.2); MEAN PLT VOLUME 9.5 fl (9.4-12.4); MONOCYTE # 0.55 x10^3/uL (0.30-0.82); PLATELET COUNT 393 x10^3/uL (163-337); RDW 13.9 % (12.2-16.1)
[2024-09-12 02:59] LABS: POTASSIUM 4.5 mmol/L (3.5-5.1)
[2024-09-12 03:01] LABS: INR 1.1 (0.83-1.09); PROTHROMBIN TIME (PATIENT) 12.1 SEC (9.7-13.0)
[2024-09-12 03:02] LABS: ALBUMIN 3.2 g/dl (3.4-5.0); BLOOD UREA NITROGEN 15.9 mg/dL (7-18); CALCIUM 9.3 mg/dL (8.5-10.1); MAGNESIUM 1.8 mg/dL (1.8-2.4)
[2024-09-12 03:03] LABS: ACTIVATED PTT 28.7 SECONDS (25.2-36.5)
[2024-09-12 03:05] LABS: CREATININE 1.4 mg/dL (0.55-1.3); PHOSPHOROUS 3.2 mg/dL (2.5-4.9)
[2024-09-12 03:07] LABS: BILIRUBIN,TOTAL 0.4 mg/dL (0.2-1); TOT PROT 7.8 g/dl (6.4-8.2)
[2024-09-12] MEDS ORDERED: MORPHINE SULFATE 2 MG/ML SYRINGE ONE (03:30)
[2024-09-12] MEDS: morphine CARPU-JECT 2 MG/1 ML DISP.SYRIN IVPUSH ONE (03:35)
[2024-09-12] MEDS ORDERED: DALBAVANCIN HCL 500 MG VIAL (RESTRICTED TO ID ONLY) IVPB ONE (04:15)
[2024-09-12] MEDS: DALBAVANCIN HCL 1,500 MG in DEXTROSE 5%-WATER - 500 ML IVPB ONE (04:45)
[2024-09-12 06:00] LABS: EPI CELLS 4 /uL (0-25.1); HYALINE CASTS 0 /uL (0-3.1); URINE APPEARANCE CLEAR; URINE BACTERIA 9 /uL (0-1359); URINE BILIRUBIN NEGATIVE (NEGATIVE); URINE COLOR YELLOW; URINE GLUCOSE (UA) 2+ (NEGATIVE); URINE KETONE NEGATIVE (NEGATIVE); URINE LEUK ESTERASE TRACE (NEGATIVE); URINE NITRITE NEGATIVE (NEGATIVE); URINE PROTEIN NEGATIVE (NEGATIVE); URINE RBC 32 /uL (0-23.9); URINE UROBILINOGEN 0.2 mg/dL (0.2-1.0); URINE WBC 42 /uL (0-25.8)
[2024-09-12 06:05] LABS: COCAINE, UR NEGATIVE (NEGATIVE); METHADONE, UR NEGATIVE (NEGATIVE); PHENCYCLIDINE,URINE NEGATIVE (NEGATIVE); URINE BENZODIAZEPINES NEGATIVE (NEGATIVE)
[2024-09-12 06:06] LABS: URINE AMPHETAMINES NEGATIVE (NEGATIVE)
[2024-09-12] MEDS: SODIUM CHLORIDE 0.9% 500 ML INFUS.BAG IV ONE (06:19)
[2024-09-12 06:53] LABS: OPIATES, URI POSITIVE (NEGATIVE); URINE BARBITURATES NEGATIVE (NEGATIVE)
[2024-09-12] MEDS ORDERED: ACETAMINOPHEN INJECTION 100 ML ONE (06:54)
[2024-09-12] MEDS: ACETAMINOPHEN 1000 MG/100 ML BAG IVPB ONE (06:57)
[2024-09-12 07:45] VITALS: BP 140/90; PULSE 72; RESP 15; TEMP 97.8
[2024-09-12 11:03] LABS: HIV INTERPRETATION NEGATIVE (NEGATIVE)
[2024-09-12 11:05] LABS: HCV DIAGNOSTIC IN-HOUSE W/RFLX NON-REACTIVE (NONREACTIVE)
== END 2024-09-12 08:15 | disposition home or self-care (01) ==
LOC: JER 01:23
PROC: 3E03329 Introduction of Other Anti-infective into Peripheral Vein, Percutaneous Approach (ICD-10-PCS; principal; 2024-09-12)
PROC: 3E033NZ Introduction of Analgesics, Hypnotics, Sedatives into Peripheral Vein, Percutaneous Approach (ICD-10-PCS; 2024-09-12)
PROC: 3E033NZ Introduction of Analgesics, Hypnotics, Sedatives into Peripheral Vein, Percutaneous Approach (ICD-10-PCS; 2024-09-12)
DX: E11.43 Type 2 diabetes mellitus with diabetic autonomic (poly)neuropathy (principal); R11.2 Nausea with vomiting, unspecified; R10.13 Epigastric pain; R60.0 Localized edema; R68.83 Chills (without fever); S51.802A Unspecified open wound of left forearm, initial encounter; S51.002A Unspecified open wound of left elbow, initial encounter; X58.XXXA Exposure to other specified factors, initial encounter
CPT/HCPCS: 36415; 71045-TC-FY; 80053; 80307; 81003; 83690; 83735; 84100; 84484; 85025; 85610; 85730; 86803; 87040; 87086; 87389; 93005; 93010; 96365; 96375; 99285-25; J0875